=== PATIENT | female | born 1970 | race Caucasian/White ===

== ENCOUNTER 2017-03-17 17:33 | Emergency (ER) | payer OTHER ==
--- NOTE | 2017-03-17 17:45 | UC ---
Throat Pain/Nasal Al HPI - HPI Summary HPI Summary: cough and sorethroat - History of Current Complaint Chief Complaint: UCLowerExtremity Stated Complaint: COUGH,SORE THROAT Time Seen by Provider: 03/17/17 17:45 Hx Obtained From: Patient Hx Last Menstrual Period: hysterectomy ?: No Onset/Duration: Sudden Onset, Lasting Days - 3, Still Present Severity: Moderate Pain Intensity: 5 Pain Scale Used: 0-10 Numeric Cough: Nonproductive Associated Signs & Symptoms: Positive: Wheezing - Allergies/Home Medications Allergies/Adverse Reactions: Allergies Allergy/AdvReac Type Severity Reaction Status Date / Time Levofloxacin [From Levaquin] Allergy Severe Swelling Verified 03/17/17 17:45 Amoxicillin Allergy Difficulty Verified 03/17/17 17:45 Breathing Sulfamethoxazole Allergy Difficulty Verified 03/17/17 17:45 w/Trimethoprim Breathing [From Bactrim] Biju inhibitor Allergy Itching Uncoded 03/17/17 17:45 PMH/Surg Hx/FS Hx/Imm Hx Previously Healthy: No - Surgical History Surgical History: Yes Surgery Procedure, Year, and Place: 1998-tubal ligation. partial hysterectomy. tonsilectomy at 7 years old. appy - Family History Known Family History: Positive: Hypertension - Social History Occupation: Employed Full-time Lives: With Family Alcohol Use: Rare Substance Use Type: None Smoking Status (MU): Heavy Every Day Tobacco Smoker Type: Cigarettes Amount Used/How Often: 1ppd Household Exposure Type: Cigarettes Cessation Counseling: Counseled 3+Min - 10 Min - Immunization History Most Recent Influenza Vaccination: planning to get Most Recent Tetanus Shot: January 2013 Review of Systems Constitutional: Negative Skin: Negative Eyes: Negative ENT: Sore Throat Respiratory: Cough Cardiovascular: Negative Gastrointestinal: Negative Genitourinary: Negative Motor: Negative Neurovascular: Negative Musculoskeletal: Negative Neurological: Negative Psychological: Negative All Other Systems Reviewed And Are Negative: Yes Physical Exam Triage Information Reviewed: Yes Appearance: Well-Nourished, Ill-Appearing, Pain Distress Vital Signs: Initial Vital Signs Temp 98.9 F 03/17/17 17:36 Pulse 89 03/17/17 17:36 Resp 18 03/17/17 17:36 BP 127/73 03/17/17 17:36 Pulse Ox 99 03/17/17 17:36 Vital Signs Reviewed: Yes Eye Exam: Normal Eyes: Positive: Conjunctiva Clear ENT Exam: Normal ENT: Positive: Normal ENT inspection, Hearing grossly normal, Pharynx normal, TMs normal. Negative: Nasal congestion, Nasal drainage, Trismus, Muffled/ hoarse voice Dental Exam: Normal Neck exam: Normal Neck: Positive: Supple, Nontender, No Lymphadenopathy Respiratory Exam: Normal Respiratory: Positive: Chest non-tender, No accessory muscle use, Respiratory distress - mild, Wheezing - L>R Cardiovascular Exam: Normal Cardiovascular: Positive: RRR, No Murmur, Pulses Normal, Brisk Capillary Refill Musculoskeletal Exam: Normal Musculoskeletal: Positive: Strength Intact, ROM Intact, No Edema Neurological Exam: Normal Neurological: Positive: Alert, Muscle Tone Normal Psychological Exam: Normal Skin Exam: Normal Re-Evaluation - Re-Evaluation First Eval Change: Improved - increase aeration and relief of chest tightness and harsh cough after neb Throat Pain/Nasal Course/Dx - Course Assessment/Plan: zithromax, albuterol, prednisone, continue with nicotine cesastion plan and patches follow with pcp - Differential Dx/Diagnosis Differential Diagnosis/HQI/PQRI: Influenza, Otitis Media, Pharyngitis, Sinusitis , URI Provider Diagnoses: Bronchitis with acute bronchospasm, nicotine dependent Discharge - Discharge Plan Condition: Stable Disposition: HOME Prescriptions: Albuterol HFA INHALER* [Ventolin HFA Inhaler*] 2 puff INH Q4H PRN #1 mdi PRN Reason: cough,wheezing Azithromycin TAB* [Zithromax TAB (Z-JIMENEZ) 250 mg #6 tabs] 2 tab PO .TODAY, THEN 1 DAILY #6 tab predniSONE TAB* [Deltasone TAB*] 10 mg PO DAILY #20 tab Patient Education Materials: How to Stop Smoking (ED), How to Use a Metered- Dose Inhaler (ED), Acute Bronchitis (ED), Bronchospasm (ED) Referrals: Minnie Arvizu MD [Primary Care Provider] - If Needed
[2017-03-17 17:47] VITALS: BP 127/73
[2017-03-17] MEDS ORDERED: Albuterol/Ipratropium NEB.SOL* Albuterol 2.5 MG/Ipratropium 0.5 MG 3 ML INH ONE (17:52)
[2017-03-17] MEDS ORDERED: predniSONE TAB* 20 MG PO ONE (17:53)
== END 2017-03-17 18:39 | disposition home or self-care (01) ==
LOC: UCEAST 17:33
DX: J20.9 Acute bronchitis, unspecified (principal); F17.210 Nicotine dependence, cigarettes, uncomplicated
CPT/HCPCS: 99212; A9270-GY; G0463; J7512

== ENCOUNTER 2017-06-19 21:55 | Emergency (ER) | payer OTHER ==
[2017-06-20 01:21] VITALS: BP 132/74
--- NOTE | 2017-06-20 07:34 | RAD ---
INDICATION: Left calf pain. COMPARISON: There are no prior studies available for comparison. TECHNIQUE: Multiple real-time, color flow and Doppler tracings of the left lower extremity were obtained. FINDINGS: The common femoral, femoral, profunda femoral and popliteal veins all demonstrate normal compressibility, augmentation with compression and phasic response with respiration. The posterior tibial and peroneal veins demonstrate normal compressibility and augmentation with compression. IMPRESSION: NO EVIDENCE FOR DEEP VENOUS THROMBOSIS.
--- NOTE | 2017-06-21 01:07 | ED ---
Lower Extremity - HPI Summary HPI Summary: Pt here w/ B/L LE pain/tightness x months. This is not foreign to her as she reports she has a connective tissue d/o (Sjogren's, Lupus, other/combo) and is followed by her PCP. She is here for U/S study to rule out DVT - she's concerned this may be contributing to this issue as she changed jobs - is now standing in one place more than ever and concerned she may have pooling. She has compression stockings but hasn't been wearing them as of late. Denies swelling, redness, streaking, groin pain, ab pain, fever, chills, chest pain, SOB. She has trialed multiple medications w/o success. She is currently taking cymbalta but may transition to gabapentin. She has had benefit in the past from prednisone and admits she has plenty at home - wanted to get checked for DVT before taking this. - History of Current Complaint Chief Complaint: EDExtremityLower Stated Complaint: LEG PAIN/TIGHTENING Time Seen by Provider: 06/20/17 00:22 Hx Obtained From: Patient Hx Last Menstrual Period: hysterectomy Pain Intensity: 6 Pain Scale Used: 0-10 Numeric - Allergies/Home Medications Allergies/Adverse Reactions: Allergies Allergy/AdvReac Type Severity Reaction Status Date / Time Levofloxacin [From Levaquin] Allergy Severe Swelling Verified 06/19/17 22:02 Amoxicillin Allergy Difficulty Verified 06/19/17 22:02 Breathing Sulfamethoxazole Allergy Difficulty Verified 06/19/17 22:02 w/Trimethoprim Breathing [From Bactrim] Biju inhibitor Allergy Itching Uncoded 06/19/17 22:02 PMH/Surg Hx/FS Hx/Imm Hx Previously Healthy: Yes Endocrine/Hematology History: Reports: Hx Systemic Lupus Erythematosus - "3 possitives, one speckled possitive test", no formal diagnosis, refuses, Hx Anemia - "On and off throughout life" Denies: Hx Diabetes, Hx Thyroid Disease Cardiovascular History: Reports: Hx Hypertension, Other Cardiovascular Problems/ Disorders - HEART CATH Denies: Hx Congestive Heart Failure Respiratory History: Reports: Other Respiratory Problems/Disorders - HX PNEUMONIA LAST YEAR Denies: Hx Asthma, Hx Chronic Obstructive Pulmonary Disease (COPD) GI History: Denies: Hx Ulcer, Other GI Disorders History: Denies: Hx Renal Disease, Other Problems/Disorders Musculoskeletal History: Reports: Hx Tendonitis - Surgical History Surgery Procedure, Year, and Place: 1998-tubal ligation. partial hysterectomy. tonsilectomy at 7 years old. appy Hx Anesthesia Reactions: No - Immunization History Date of Tetanus Vaccine: up to date Infectious Disease History: No Infectious Disease History: Reports: Hx of Known/Suspected MRSA - abcess 2009 ? ? questionable Denies: Hx Clostridium Difficile, Hx Hepatitis, Hx Human Immunodeficiency Virus (HIV), Hx Shingles, Hx Tuberculosis, Traveled Outside the [place] in Last 30 Days - Family History Known Family History: Positive: Hypertension - Social History Occupation: Employed Full-time Lives: With Family Alcohol Use: Rare Hx Substance Use: No Substance Use Type: Reports: None Hx Tobacco Use: Yes - not currently Smoking Status (MU): Former Smoker Type: Cigarettes Amount Used/How Often: 1ppd Review of Systems Constitutional: Negative Eyes: Negative ENT: Other - getting over URI Cardiovascular: Negative Respiratory: Negative Gastrointestinal: Negative Positive: no symptoms reported Positive: Myalgia. Negative: Decreased ROM, Edema Skin: Negative Neurological: Negative Psychological: Normal All Other Systems Reviewed And Are Negative: Yes Physical Exam Triage Information Reviewed: Yes Vital Signs On Initial Exam: Initial Vitals Temp Pulse Resp BP Pulse Ox 97.5 F 86 18 147/71 99 06/19/17 21:57 06/19/17 21:57 06/19/17 21:57 06/19/17 21:57 06/19/17 21:57 Vital Signs Reviewed: Yes Appearance: Positive: Well-Appearing, No Pain Distress - lying on stretcher - appears comfortable, Obese Skin: Positive: Warm, Dry - no erythema, no ecchymosis, no lesions Head/Face: Positive: Normal Head/Face Inspection Eyes: Positive: EOMI ENT: Positive: Hearing grossly normal Respiratory/Lung Sounds: Positive: Breath Sounds Present Cardiovascular: Positive: Pulses are Symmetrical in both Upper and Lower Extremities. Negative: Leg Edema Left, Leg Edema Right - B/L LE's are tender throughout (calves and thighs) Musculoskeletal: Positive: Normal, Strength/ROM Intact Neurological: Positive: Normal, Sensory/Motor Intact, Alert, Oriented to Person Place, Time, CN Intact II-III Psychiatric: Positive: Normal - pleasant, calm, cooperative, in good spirits Diagnostics - Vital Signs Vital Signs Temp Pulse Resp BP Pulse Ox 06/20/17 01:17 79 16 132/74 98 06/19/17 21:57 97.5 F 86 18 147/71 99 - Laboratory Diagnostic Studies Comment: U/S report reviewed: no dvt Lab Statement: Any lab studies that have been ordered have been reviewed, and results considered in the medical decision making process. Lower Extremity Course/Dx - Course Course Of Treatment: No DVT's found on U/S. LE's appear to be well perfused and does not appear to be a lumbar pathology. Suspect pt's connective tissue d/o is causing her pain. Encouraged calling PCP to discuss steroid at this time. Also discussed possibility of myofascial d/o and may benefit from medical massage - she jokingly states "I don't have time to pamper myself like that". Agrees to monitor for danger s/sx and will f/u w/ PCP. Will return to ED if necessary. - Diagnoses Provider Diagnoses: Bilateral leg pain Discharge - Discharge Plan Condition: Stable Disposition: HOME Patient Education Materials: Peripheral Neuropathy (ED), Musculoskeletal Pain ( ED), Leg Pain (ED) Forms: *Work Release Referrals: Minnie Arvizu MD [Primary Care Provider] - Additional Instructions: Your ultrasound tonight does not reveal clot(s). You are reporting that your pain is comparable to your typical connective tissue pain which is autoimmune in nature. You have declined blood work tonight. Please stay hydrated with water and gatorade, avoid diuretics/stimulants, rest your legs and follow-up with PCP this week. Call to schedule appointment. *If you develop worsening of pain or chest pain, shortness of breath, fatigue, headache, change in vision, fever, chills, numbness, or weakness, return to ED
== END 2017-06-20 01:17 | disposition home or self-care (01) ==
LOC: ED 21:55
DX: M79.605 Pain in left leg (principal); M79.604 Pain in right leg; Z87.891 Personal history of nicotine dependence
CPT/HCPCS: 99282

== ENCOUNTER 2017-09-30 10:16 | Emergency (ER) | payer OTHER ==
[2017-09-30 10:43] VITALS: BP 126/91
--- NOTE | 2017-09-30 12:39 | UC ---
Martina Cook Emily, scribed for Madan Azul MD on 09/30/17 at 1129 . Respiratory Complaint HPI - HPI Summary HPI Summary: This patient is a 47 year old F presenting to urgent care with a chief complaint of cough with yellow sputum that began 09/27/2017. The patient rates the pain 2/10 in severity. Symptoms aggravated by deep breaths. Symptoms alleviated by Mucinex. Patient reports wheezing, SOB, CP with cough, sneezing, sore throat, and chills. Patient denies myalgia. - History of Current Complaint Chief Complaint: UCRespiratory Stated Complaint: URI Time Seen by Provider: 09/30/17 11:14 Hx Obtained From: Patient Hx Last Menstrual Period: hysterectomy Onset/Duration: Sudden Onset, Lasting Days, Still Present Timing: Constant Severity Initially: Mild Severity Currently: Mild Pain Intensity: 2 Pain Scale Used: 0-10 Numeric Character: Cough: Productive, Sputum Description: - Yellow Aggravating Factors: Deep Breaths Alleviating Factors: OTC Meds Associated Signs And Symptoms: Positive: Chills, Pleuritic Chest Pain - Allergies/Home Medications Allergies/Adverse Reactions: Allergies Allergy/AdvReac Type Severity Reaction Status Date / Time TED Inhibitors Allergy Rash Verified 09/30/17 10:44 amoxicillin Allergy Rash Verified 09/30/17 10:44 levofloxacin [From Levaquin] Allergy Swelling Verified 09/30/17 10:44 Of Face,Lips,& Throat Sulfa (Sulfonamide Allergy Rash Verified 09/30/17 10:44 Antibiotics) Home Medications: Home Medications Guaifenesin/Pseudo 600/60(NF) [Mucinex D 600/60 (NF)] 2 tab PO Q12H 09/30/17 [ History Confirmed 09/30/17] Naproxen [Naproxen 500 mg] 500 mg PO Q8H PRN 09/30/17 [History Confirmed ] PMH/Surg Hx/FS Hx/Imm Hx Previously Healthy: No Cardiovascular History: Hypertension Respiratory History: Pneumonia - Surgical History Surgical History: Yes Surgery Procedure, Year, and Place: 1998-tubal ligation. partial hysterectomy. tonsilectomy at 7 years old. appy - Family History Known Family History: Positive: Cardiac Disease, Hypertension, Diabetes - Social History Occupation: Employed Full-time Lives: With Family Alcohol Use: Rare Substance Use Type: None Smoking Status (MU): Former Smoker Type: Cigarettes Amount Used/How Often: 1ppd Household Exposure Type: Cigarettes - Immunization History Most Recent Influenza Vaccination: planning to get Most Recent Tetanus Shot: January 2013 Review of Systems Constitutional: Chills ENT: Sore Throat Respiratory: Shortness Of Breath, Cough, Other - Positive wheezing and sneezing Cardiovascular: Chest Pain - with cough Musculoskeletal: Other: - Negative myalgia All Other Systems Reviewed And Are Negative: Yes Physical Exam - Summary Physical Exam Summary: General: mildly ill appearing, no pain-distress Skin: warm, color reflects adequate perfusion, dry Head: normal Eyes: EOMI, ADONIS ENT: positive rhinorrhea Neck: supple, nontender Respiratory: breath sounds present, occasional wheeze, positive rhonchi Cardiovascular: RRR Abdomen: soft, nontender Bowel: present Musculoskeletal: normal, strength/ROM intact Neurological: normal, sensory/motor intact, A&O x3 Psychological: affect/mood appropriate Triage Information Reviewed: Yes Vital Signs: Initial Vital Signs Temp 97.8 F 09/30/17 10:37 Pulse 64 09/30/17 10:37 Resp 18 09/30/17 10:37 BP 126/91 09/30/17 10:37 Pulse Ox 95 09/30/17 10:37 Vital Signs Reviewed: Yes UC Diagnostic Evaluation - Laboratory O2 Sat by Pulse Oximetry: 95 Respiratory Course/Dx - Course Course Of Treatment: BP noted and advised to follow up with PCP. DISCUSSED VIRAL VERSES BACTERIAL INFECTION. PATIENT WISHES TO BE ON ABX NOW THE PRESENTATION REMINDS HER OF GETTING PNEUMONIA. F/U PMD; RETURN IF WORSE. - Differential Dx/Diagnosis Provider Diagnoses: BRONCHITIS WITH BRONCHOSPASM. HTN Discharge - Discharge Plan Condition: Stable Disposition: HOME Prescriptions: Albuterol HFA INHALER* [Ventolin HFA Inhaler*] 2 puff INH Q4H PRN #1 mdi PRN Reason: Wheezing Azithromyxin BEREKET (NF) [Z-Bereket (Zithromax) 250 mg tabs #6] 2 tab PO .TODAY, THEN 1 DAILY #6 tab Patient Education Materials: Acute Bronchitis (ED), Bronchospasm (ED) Forms: *Work Release Referrals: Minnie Arvizu MD [Primary Care Provider] - Additional Instructions: FOLLOW UP WITH YOUR DOCTOR. RETURN TO THE EMERGENCY DEPARTMENT FOR ANY WORSENING OF YOUR CONDITION OR QUESTIONS OR CONCERNS. YOUR BLOOD PRESSURE WAS ELEVATED DURING TODAY'S VISIT; FOLLOW UP WITH YOUR PCP WITHIN ONE WEEK FOR FURTHER EVALUATION. The documentation as recorded by the Martina serrano Emily accurately reflects the service I personally performed and the decisions made by me, Madan Azul MD.
== END 2017-09-30 11:30 | disposition home or self-care (01) ==
LOC: UCEAST 10:16
DX: J20.9 Acute bronchitis, unspecified (principal); I10 Essential (primary) hypertension; Z87.891 Personal history of nicotine dependence; Z88.0 Allergy status to penicillin; Z88.2 Allergy status to sulfonamides
CPT/HCPCS: 99212; G0463

== ENCOUNTER 2018-01-09 09:04 | Emergency (ER) | payer OTHER ==
--- NOTE | 2018-01-09 10:35 | UC ---
Abdominal Pain Female HPI - HPI Summary HPI Summary: Patient has right upper quadrant pain and tenderness. No injuries no nausea no vomiting no fevers - History of Current Complaint Chief Complaint: UCAbdominalPain Stated Complaint: RIGHT RIB PAIN Time Seen by Provider: 01/09/18 10:24 Hx Obtained From: Patient Hx Last Menstrual Period: hyster ?: No Onset/Duration: Sudden Onset, Lasting Days - 1 Timing: Constant Pain Intensity: 7 Pain Scale Used: 0-10 Numeric Location: Discrete At: RUQ Radiates: No Character: Colicy Aggravating Factor(s): Nothing Alleviating Factor(s): Nothing Allergies/Adverse Reactions: Allergies Allergy/AdvReac Type Severity Reaction Status Date / Time TED Inhibitors Allergy Rash Verified 09/30/17 10:44 amoxicillin Allergy Rash Verified 09/30/17 10:44 levofloxacin [From Levaquin] Allergy Swelling Verified 09/30/17 10:44 Of Face,Lips,& Throat Sulfa (Sulfonamide Allergy Rash Verified 09/30/17 10:44 Antibiotics) Home Medications: Home Medications Hydroxychloroquine TAB* [Plaquenil TAB*] 200 mg PO DAILY 01/09/18 [History Confirmed 01/09/18] Irbesartan 75 mg PO DAILY 01/09/18 [History Confirmed 01/09/18] PMH/Surg Hx/FS Hx/Imm Hx Previously Healthy: 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 partial hysterectomy. tonsilectomy at 7 years old. appy - Family History Known Family History: Positive: Cardiac Disease, Hypertension, Diabetes - Social History Occupation: Employed Full-time Lives: With Family Alcohol Use: None Substance Use Type: None Smoking Status (MU): Light Every Day Tobacco Smoker Type: Cigarettes Amount Used/How Often: 1ppd Household Exposure Type: Cigarettes Cessation Counseling: Counseled 3+Min - 10 Min - Immunization History Most Recent Influenza Vaccination: planning to get Most Recent Tetanus Shot: January 2013 Review of Systems Constitutional: Negative Skin: Negative Eyes: Negative ENT: Negative Respiratory: Negative Cardiovascular: Negative Gastrointestinal: Abdominal Pain Genitourinary: Negative Motor: Negative Neurovascular: Negative Musculoskeletal: Negative Neurological: Negative Psychological: Negative Is Patient Immunocompromised?: No All Other Systems Reviewed And Are Negative: Yes Physical Exam Triage Information Reviewed: Yes Appearance: Well-Appearing, No Pain Distress, Well-Nourished Vital Signs: Initial Vital Signs Temp 97.7 F 01/09/18 09:20 Pulse 90 01/09/18 09:20 Resp 18 01/09/18 09:20 BP 125/87 01/09/18 09:20 Pulse Ox 99 01/09/18 09:20 Vital Signs Reviewed: Yes Eye Exam: Normal Eyes: Positive: Conjunctiva Clear ENT Exam: Normal ENT: Positive: Normal ENT inspection, Hearing grossly normal. Negative: Trismus , Muffled voice, Hoarse voice Neck exam: Normal Neck: Positive: Supple, Nontender Respiratory Exam: Normal Respiratory: Positive: Chest non-tender, Lungs clear, Normal breath sounds, No respiratory distress, No accessory muscle use Cardiovascular Exam: Normal Cardiovascular: Positive: RRR, No Murmur, Pulses Normal, Brisk Capillary Refill Abdominal Exam: Other Abdomen Description: Positive: No Organomegaly, Soft, Other: - RUQ pain. Negative: CVA Tenderness (R), CVA Tenderness (L), Distended, Hepatomegaly, McBurney's Point Tenderness Bowel Sounds: Positive: Present Musculoskeletal Exam: Normal Musculoskeletal: Positive: Strength Intact, ROM Intact, No Edema Neurological Exam: Normal Neurological: Positive: Alert, Muscle Tone Normal Psychological Exam: Normal Skin Exam: Normal Diagnostics - Laboratory Diagnostic Studies Completed/Ordered: [id number] - Radiology No standard instances Xray Interpretation: No Acute Changes Radiology Interpretation Completed By: ED Physician, Radiologist - Patient Name : GISELA DIMAS Medical Record#: [id number] Ordering Physician: Marlin Garner MANUFACTURING ENGINEERING TECHNOLOGIST Acct.#: [id number] : 1970 Age: 47 Sex: F Location: [facility] Exam Date: 01/09/18 1031 ADM Status: REG ER Order Information: US ABDOMEN LIMITED Accession Number: [id number] CPT : 87413 Indication: 1 day RIGHT upper quadrant pain. Comparison: April 08, 2013 CT Technique: RIGHT upper quadrant ultrasound. Report: Appropriate direction flow documented in the portal and hepatic veins. 19.3 cm liver is increased in echogenicity consistent with fatty infiltration with focal sparing at the gallbladder fossa. Negative for focal hepatic lesions. Negative for intrahepatic biliary dilatation. 2.8 mm common bile duct. Adequately distended gallbladder with normal 1.7 mm wall is without pathologic finding. Negative for sonographic Brown's sign. The pancreatic tail is partially obscured due to bowel gas with the visualized pancreas unremarkable. Negative for ascites. 11.5 x 4.7 x 4.7 cm RIGHT kidney is unremarkable. IMPRESSION: 1. Borderline enlarged liver with fatty infiltration. 2. Negative for gallbladder pathology. <Electronically signed by Joe Nelson MD in OV> 01/09/18 1117 Dictated By: Joe Nelson MD Dictated Date/ Time: 01/09/18 111 Transcribed Date/Time: 01/09/18 1113 Copy to: CC:Minnie Arvizu MD; Marlin Garner MANUFACTURING ENGINEERING TECHNOLOGIST; Lulú Forte MD Imaging - [facility] Imaging - [facility] [address] [place] [address] ph ([phone]) ph ([phone]) ph ([phone]) 1 of 1 Abd Pain Female Course/Dx - Course Course Of Treatment: heat, flexeril, ultram rest follow with pcp - Differential Dx/Diagnosis Provider Diagnoses: MUscular skelatal pain Discharge - Sign-Out/Discharge Documenting (check all that apply): Discharge/Admit/Transfer - Discharge Plan Condition: Stable Disposition: HOME Prescriptions: Tramadol HCl [Ultram] 50 mg PO Q8HR PRN #15 tablet MDD 3 PRN Reason: pain Patient Education Materials: Musculoskeletal Pain (ED), Hypertension (ED) Forms: *Work Release Referrals: Minnie Arvizu MD [Primary Care Provider] - 2 Days - Billing Disposition and Condition Condition: STABLE Disposition: Home
--- NOTE | 2018-01-09 11:20 | RAD ---
Indication: 1 day RIGHT upper quadrant pain. Comparison: April 08, 2013 CT Technique: RIGHT upper quadrant ultrasound. Report: Appropriate direction flow documented in the portal and hepatic veins. 19.3 cm liver is increased in echogenicity consistent with fatty infiltration with focal sparing at the gallbladder fossa. Negative for focal hepatic lesions. Negative for intrahepatic biliary dilatation. 2.8 mm common bile duct. Adequately distended gallbladder with normal 1.7 mm wall is without pathologic finding. Negative for sonographic Brown's sign. The pancreatic tail is partially obscured due to bowel gas with the visualized pancreas unremarkable. Negative for ascites. 11.5 x 4.7 x 4.7 cm RIGHT kidney is unremarkable. IMPRESSION: 1. Borderline enlarged liver with fatty infiltration. 2. Negative for gallbladder pathology.
[2018-01-09 12:26] VITALS: BP 136/84
== END 2018-01-09 12:21 | disposition home or self-care (01) ==
LOC: UCEAST 09:04
DX: R10.11 Right upper quadrant pain (principal); Z88.1 Allergy status to other antibiotic agents; Z88.0 Allergy status to penicillin; Z88.2 Allergy status to sulfonamides; D89.89 Other specified disorders involving the immune mechanism, not elsewhere classified; I10 Essential (primary) hypertension; J45.20 Mild intermittent asthma, uncomplicated; Z82.49 Family history of ischemic heart disease and other diseases of the circulatory system; Z83.3 Family history of diabetes mellitus; Z71.6 Tobacco abuse counseling; F17.210 Nicotine dependence, cigarettes, uncomplicated
CPT/HCPCS: 76705; 81003; 99212; G0463

== ENCOUNTER 2018-04-04 09:08 | Emergency (ER) | payer OTHER ==
[2018-04-04 09:25] VITALS: BP 144/86
--- NOTE | 2018-04-04 09:31 | UC ---
Head Injury HPI - HPI Summary HPI Summary: A 47 y/o F presents to E s/p hitting her head on a metal cooler door onset approx 0800. Onset of pain was immediate and described as burning. Associated sx : dizziness, L eye feels "tight," photophobia. Denies LOC, neck pain, dental trauma (wears dentures), changes in ambulation. She states she had bent down but left the door open, so when she stood up, she hit her forehead against the door. Medications reviewed, pt is not on a blood thinner. 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 - History Of Current Complaint Chief Complaint: UCHeadInjury Stated Complaint: HEAD INJURY Hx Obtained From: Patient Hx Last Menstrual Period: hyster Onset/Duration: Sudden Onset, Lasting Hours, Still Present Severity Currently: Moderate Severity Initially: Moderate Pain Intensity: 6 Pain Scale Used: 0-10 Numeric Associated Signs And Symptoms: Positive: Other - pos: dizziness, L eye feels "tight," photophobia. neg: changes in ambulation. Negative: LOC (Time In Secs./ Mins/Hrs), LOC Duration Unknown, Dental Malocclusion, Neck Pain - Allergies/Home Medications Allergies/Adverse Reactions: Allergies Allergy/AdvReac Type Severity Reaction Status Date / Time TED Inhibitors Allergy Rash Verified 04/04/18 09:25 amoxicillin Allergy Rash Verified 04/04/18 09:25 celecoxib [From Celebrex] Allergy Nausea Verified 04/04/18 09:26 levofloxacin [From Levaquin] Allergy Swelling Verified 04/04/18 09:25 Of Face,Lips,& Throat Sulfa (Sulfonamide Allergy Rash Verified 04/04/18 09:25 Antibiotics) Home Medications: Home Medications Cyclobenzaprine TAB* [Flexeril 10 MG TAB*] 10 mg PO 04/04/18 [History] PMH/Surg Hx/FS Hx/Imm Hx Previously Healthy: No Cardiovascular History: Cardiac Disease, Hypertension Respiratory History: Bronchitis Other GI/ History: denies GI hx - Surgical History Surgical History: Yes Surgery Procedure, Year, and Place: 1998-tubal ligation. partial hysterectomy. tonsilectomy at 7 years old. appy - Family History Known Family History: Positive: Cardiac Disease, Hypertension, Diabetes, Other - neg: Breast CA - Social History Occupation: Employed Full-time Lives: With Family Alcohol Use: None Substance Use Type: None Smoking Status (MU): Heavy Every Day Tobacco Smoker Type: Cigarettes Amount Used/How Often: 1ppd Household Exposure Type: Cigarettes - Immunization History Most Recent Influenza Vaccination: planning to get Most Recent Tetanus Shot: January 2013 Review of Systems Constitutional: Other - neg: changes in ambulation Eyes: Photophobia, Other - pos: L eye feels "tight" ENT: Other - neg: dental trauma Musculoskeletal: Other: - neg: neck pain Neurological: Headache, Other - pos: dizziness; neg: LOC All Other Systems Reviewed And Are Negative: Yes Physical Exam - Summary Physical Exam Summary: General: well-appearing, no pain distress Skin: warm, color reflects adequate perfusion, dry Head: Swelling to L temporal-parietal scalp, no skin break, tender to palpation. Eyes: EOMI, ADONIS ENT: normal Neck: supple, nontender Respiratory: CTA, breath sounds present Cardiovascular: RRR Abdomen: soft, nontender Bowel: present Musculoskeletal: normal, strength/ROM intact Neurological: sensory/motor intact, A&O x3 Psychological: affect/mood appropriate Triage Information Reviewed: Yes Vital Signs: Initial Vital Signs Temp 96.8 F 04/04/18 09:21 Pulse 80 04/04/18 09:21 Resp 18 04/04/18 09:21 BP 144/86 04/04/18 09:21 Pulse Ox 99 04/04/18 09:21 Vital Signs Reviewed: Yes - Additional Comments GCS: 15 Diagnostics - Laboratory Diagnostic Studies Completed/Ordered: BRAIN CT as read by radiologist: IMPRESSION: No evidence for acute intracranial abnormality. [facility] provider has reviewed this report. Re-Evaluation - Re-Evaluation 1 Re-Evaluation Time: 10:40 Change: Unchanged Comment: Discussing CT results with pt and plan for dispo. Pt voiced understanding. Head Injury Course/Dx - Course Course Of Treatment: BP noted and advised to follow up with PCP. Medications reviewed. Allergies noted. DISCUSSED CT RESULTS WITH THE PATIENT. F/U PMD; RECHECK SOONER IF WORSE. - Differential Dx/Diagnosis Provider Diagnoses: HEAD INJURY Discharge - Sign-Out/Discharge Documenting (check all that apply): Patient Departure - DC All imaging exams completed and their final reports reviewed: Yes - Discharge Plan Condition: Stable Disposition: HOME Patient Education Materials: Head Injury (ED) Forms: *Work Release Referrals: Minnie Arvizu MD [Primary Care Provider] - Additional Instructions: FOLLOW UP WITH YOUR DOCTOR IF NOT COMPLETELY IMPROVED. GET RECHECKED FOR ANY WORSENING OF YOUR CONDITION; PAIN, WEAKNESS, NUMBNESS, CHANGE IN VISION OR SPEECH OR QUESTIONS OR CONCERNS. Your blood pressure was elevated during todays visit; please follow up with your primary care provider within a week for further evaluation. - Billing Disposition and Condition Condition: STABLE Disposition: Home - Attestation Statements Document Initiated by Scribe: Yes Documenting Scribe: Raoul Florence Provider For Whom Narciso is Documenting (Include Credential): Madan Azul MD Scribe Attestation: I, Raoul Florence, scribed for Madan Azul MD on 04/04/18 at 1154. Scribe Documentation Reviewed: Yes Provider Attestation: The documentation as recorded by the Raoul serrano accurately reflects the service I personally performed and the decisions made by me, Madan Azul MD
[2018-04-04] MEDS ORDERED: Acetaminophen TAB* 325 MG PO ONE (09:41)
--- NOTE | 2018-04-04 10:30 | RAD ---
INDICATION: Headache status post trauma. COMPARISON: Comparison is made with a prior study from January 21, 2014. TECHNIQUE: Contiguous axial sections of the brain were obtained from the skull base to the vertex without contrast. FINDINGS: The ventricles, cisterns and sulci are within normal limits. No significant focal abnormality or mass effect is seen. There is no evidence for hemorrhage. The visualized portion of the paranasal sinuses appear clear. No fracture is seen. IMPRESSION: NO EVIDENCE FOR ACUTE INTRACRANIAL ABNORMALITY.
== END 2018-04-04 10:54 | disposition home or self-care (01) ==
LOC: UCEAST 09:08
DX: S09.90XA Unspecified injury of head, initial encounter (principal); R42 Dizziness and giddiness; H53.142 Visual discomfort, left eye; F17.210 Nicotine dependence, cigarettes, uncomplicated; I10 Essential (primary) hypertension; Z88.8 Allergy status to other drugs, medicaments and biological substances; Z88.0 Allergy status to penicillin; Z88.1 Allergy status to other antibiotic agents; Z88.2 Allergy status to sulfonamides; W22.8XXA Striking against or struck by other objects, initial encounter; Y92.9 Unspecified place or not applicable
CPT/HCPCS: 70450; 99211; A9270-GY; G0463

== ENCOUNTER 2018-05-07 09:55 | Emergency (ER) | payer OTHER ==
[2018-05-07 10:33] LABS: ABS Basophils 0.1 10^3/ul (0-0.2); ABS Eosinophils 0.1 10^3/ul (0-0.6); ABS Monocytes 0.6 10^3/ul (0-0.8); ABS Neutrophils 5.7 10^3/ul (1.5-7.7); ABS Nucleated RBC 0 10^3/ul; Eosinophil % 1.3 % (0-6); Hematocrit 42 % (35-47); Hemoglobin 14.6 g/dl (12.0-16.0); Lymphocyte % 23.9 % (25-47); Mean Corpuscular HGB Conc 35 g/dl (31-36); Mean Corpuscular Hemoglobin 33 pg (27-31); Mean Corpuscular Volume 95 fL (80-97); Mean Platelet Volume 7.5 um3 (7.4-10.4); Nucleated Red Blood Cells % 0.1; Platelet Count 341 10^3/ul (150-450); Red Blood Count 4.46 10^6/ul (4.00-5.40); Red Cell Distribution Width 12 % (10.5-15); White Blood Count 8.5 10^3/ul (3.5-10.8)
[2018-05-07 10:56] LABS: EGFR Non-African American 75.2 (>60)
--- NOTE | 2018-05-07 12:07 | ED ---
HPI Chest Pain - HPI Summary HPI Summary: A 47 y/o F presents to ED with c/o intermittent, discrete L-sided chest pain and LUE pain onset last night which lasted approx 3 hours. Patient contacted her PCP this morning who referred her to ED. She describes the pain as a "twitch." Denies SOB, n/v, dizziness. Alleviating factors: sleeping in a chair. Patient is in the car every other weekend for 4 hours at a time, including this past weekend. She was extremely stressed last night due to her son. PMHx: HTN. - History of Current Complaint Chief Complaint: EDChestPainROMI Time Seen by Provider: 05/07/18 11:18 Hx Obtained From: Patient Hx Last Menstrual Period: hyster Onset/Duration: Started Hours Ago, Still Present Timing: Intermittent, Lasting Hours Initial Severity: Moderate Current Severity: Mild Pain Intensity: 2 Pain Scale Used: 0-10 Numeric Chest Pain Location: Left Anterior Chest Pain Radiates: Yes Chest Pain Radiates To:: Arm - LUE Character: Other: - "twitch" Alleviating Factor(s): Upright Position Associated Signs and Symptoms: Negative: Dizziness, Shortness of Breath, Nausea , Vomiting - Allergy/Home Medications Allergies/Adverse Reactions: Allergies Allergy/AdvReac Type Severity Reaction Status Date / Time TED Inhibitors Allergy Rash Verified 05/07/18 10:02 amoxicillin Allergy Rash Verified 05/07/18 10:02 celecoxib [From Celebrex] Allergy Nausea Verified 05/07/18 10:02 levofloxacin [From Levaquin] Allergy Swelling Verified 05/07/18 10:02 Of Face,Lips,& Throat Sulfa (Sulfonamide Allergy Rash Verified 05/07/18 10:02 Antibiotics) PMH/Surg Hx/FS Hx/Imm Hx Previously Healthy: No Endocrine/Hematology History: Reports: Hx Systemic Lupus Erythematosus - "3 possitives, one speckled possitive test", no formal diagnosis, refuses, Hx Anemia - "On and off throughout life" Denies: Hx Diabetes, Hx Thyroid Disease Cardiovascular History: Reports: Hx Hypertension, Other Cardiovascular Problems/ Disorders - HEART CATH Denies: Hx Congestive Heart Failure Respiratory History: Reports: Other Respiratory Problems/Disorders - HX PNEUMONIA LAST YEAR Denies: Hx Asthma, Hx Chronic Obstructive Pulmonary Disease (COPD) GI History: Denies: Hx Ulcer, Other GI Disorders History: Denies: Hx Renal Disease, Other Problems/Disorders Musculoskeletal History: Reports: Hx Tendonitis - Surgical History Surgery Procedure, Year, and Place: 1998-tubal ligation. partial hysterectomy. tonsilectomy at 7 years old. appy Hx Anesthesia Reactions: No - Immunization History Date of Tetanus Vaccine: up to date Immunizations Up to Date: Yes Infectious Disease History: No Infectious Disease History: Reports: Hx of Known/Suspected MRSA - abcess 2009 ? ? questionable Denies: Hx Clostridium Difficile, Hx Hepatitis, Hx Human Immunodeficiency Virus (HIV), Hx Shingles, Hx Tuberculosis, Traveled Outside the [place] in Last 30 Days - Family History Known Family History: Positive: Cardiac Disease, Hypertension, Diabetes, Other - neg: Breast CA - Social History Occupation: Employed Full-time Lives: With Family Alcohol Use: None Hx Substance Use: No Substance Use Type: Reports: None Hx Tobacco Use: Yes - not currently Smoking Status (MU): Heavy Every Day Tobacco Smoker Type: Cigarettes Amount Used/How Often: 1ppd Review of Systems Positive: Chest Pain Negative: Shortness Of Breath Negative: Vomiting, Nausea Musculoskeletal: Other - LUE pain radiating from chest Neurological: Other - neg: dizziness All Other Systems Reviewed And Are Negative: Yes Physical Exam - Summary Physical Exam Summary: VITAL SIGNS: Reviewed. GENERAL: Patient is a well-developed and nourished FEMALE who is lying comfortable in the stretcher. Patient is not in any acute respiratory distress. HEAD AND FACE: No signs of trauma. No ecchymosis, hematomas or skull depressions. No sinus tenderness. EYES: PERRLA, EOMI x 2, No injected conjunctiva, no nystagmus. EARS: Hearing grossly intact. Ear canals and tympanic membranes are within normal limits. MOUTH: Oropharynx within normal limits. NECK: Supple, trachea is midline, no adenopathy, no JVD, no carotid bruit, no c- spine tenderness, neck with full ROM. CHEST: Symmetric, slight reproducible pain with palpation of anterior aspect of L side. LUNGS: Clear to auscultation bilaterally. No wheezing or crackles. CVS: Regular rate and rhythm, S1 and S2 present, no murmurs or gallops appreciated. ABDOMEN: Soft, non-tender. No signs of distention. No rebound, no guarding, and no masses palpated. Bowel sounds are normal. EXTREMITIES: FROM in all major joints, no edema, no cyanosis or clubbing. NEURO: Alert and oriented x 3. No acute neurological deficits. Speech is normal and follows commands. SKIN: Dry and warm Triage Information Reviewed: Yes Vital Signs On Initial Exam: Initial Vitals Temp Pulse Resp BP Pulse Ox 96.5 F 95 18 140/88 100 05/07/18 09:59 05/07/18 09:59 05/07/18 09:59 05/07/18 09:59 05/07/18 09:59 Vital Signs Reviewed: Yes Diagnostics - Vital Signs Vital Signs Temp Pulse Resp BP Pulse Ox 05/07/18 09:59 96.5 F 95 18 140/88 100 - Laboratory Lab Results: Lab Results 05/07/18 05/07/18 05/07/18 Range/Units 10:21 10:21 10:21 WBC 8.5 (3.5-10.8) 10^3/ul RBC 4.46 (4.00-5.40) 10^6/ul Hgb 14.6 (12.0-16.0) g/dl Hct 42 (35-47) % MCV 95 (80-97) fL MCH 33 H (27-31) pg MCHC 35 (31-36) g/dl RDW 12 (10.5-15) % Plt Count 341 (150-450) 10^3/ul MPV 7.5 (7.4-10.4) um3 Neut % (Auto) 67.0 (38-83) % Lymph % (Auto) 23.9 L (25-47) % [place] % (Auto) 7.0 (0-7) % Eos % (Auto) 1.3 (0-6) % Baso % (Auto) 0.8 (0-2) % Absolute Neuts (auto) 5.7 (1.5-7.7) 10^3/ul Absolute Lymphs (auto) 2.0 (1.0-4.8) 10^3/ul Absolute Monos (auto) 0.6 (0-0.8) 10^3/ul Absolute Eos (auto) 0.1 (0-0.6) 10^3/ul Absolute Basos (auto) 0.1 (0-0.2) 10^3/ul Absolute Nucleated RBC 0 10^3/ul Nucleated RBC % 0.1 Sodium 138 (135-145) mmol/L Potassium 3.5 (3.5-5.0) mmol/L Chloride 101 (101-111) mmol/L Carbon Dioxide 31 (22-32) mmol/L Anion Gap 6 (2-11) mmol/L BUN 17 (6-24) mg/dL Creatinine 0.81 (0.51-0.95) mg/dL Est GFR ( Amer) 90.9 (>60) Est GFR (Non-Af Amer) 75.2 (>60) BUN/Creatinine Ratio 21.0 H (8-20) Glucose 116 H (70-100) mg/dL Lactic Acid 0.9 (0.5-2.0) mmol/L Calcium 9.6 (8.6-10.3) mg/dL Total Bilirubin 0.50 (0.2-1.0) mg/dL AST 14 (13-39) U/L ALT 13 (7-52) U/L Alkaline Phosphatase 86 (34-104) U/L Troponin I 0.01 (<0.04) ng/mL Total Protein 7.2 (6.4-8.9) g/dL Albumin 4.6 (3.2-5.2) g/dL Globulin 2.6 (2-4) g/dL Albumin/Globulin Ratio 1.8 (1-3) Result Diagrams: 05/07/18 10:21 05/07/18 10:21 Lab Statement: Any lab studies that have been ordered have been reviewed, and results considered in the medical decision making process. - Radiology CXR Xray Interpretation: No Acute Changes - IMPRESSION: No evidence for active cardiopulmonary dz. ED provider has reviewed this report. Radiology Interpretation Completed By: Radiologist - EKG 1012 Cardiac Rate: NL - 75bpm EKG Rhythm: Sinus Rhythm EKG Interpretation: no ST elevation Chest Pain Course/Dx - Course Assessment/Plan: A 47 y/o F presents to ED with c/o intermittent, discrete L- sided chest pain and LUE pain onset last night which lasted approx 3 hours. Patient contacted her PCP this morning who referred her to ED. She describes the pain as a "twitch." Denies SOB, n/v, dizziness. Alleviating factors: sleeping in a chair. Patient is in the car every other weekend for 4 hours at a time, including this past weekend. She was extremely stressed last night due to her son. PMHx: HTN. Blood test results without any significant abnormality except for glucose of 116. 2 troponins 4 hours apart 0.01. The patient is not tachycardic or hypoxic therefore I have low suspicion for PE. The patient has remained asymptomatic. The patient denies any chest pain. EKG shows a normal sinus rhythm without any ST elevation. Chest x-ray shows no acute pathology. In the ED course the patient has remained asymptomatic therefore I would discharge the patient home with follow-up with primary care physician. The heart score is equal to 1. - Chest Pain Differential Diagnosis/HQI/PQRI: Acute PR, ACS, Angina, CHF, Chest Wall, GI Disease, Lower Respiratory Infection, Pulmonary Edema - Diagnoses Provider Diagnoses: Atypical chest pain Discharge - Sign-Out/Discharge Documenting (check all that apply): Patient Departure - DC - Discharge Plan Condition: Stable Disposition: HOME Patient Education Materials: Chest Pain (ED) Referrals: Minnie Arvizu MD [Primary Care Provider] - 3 Days Additional Instructions: Follow up with your primary care provider in 2-3 days. Please return to the ED if you experience new or worsening symptoms. - Billing Disposition and Condition Condition: STABLE Disposition: Home - Attestation Statements Document Initiated by Luis Fernandoibfarshad: Yes Documenting Scribe: Raoul Florence Provider For Whom Narciso is Documenting (Include Credential): Dr. Joe Rowland MD Scribe Attestation: IRaoul, scribed for Dr. Joe Rowland MD on 05/08/18 at 1817. Scribe Documentation Reviewed: Yes Provider Attestation: The documentation as recorded by the Raoul serrano accurately reflects the service I personally performed and the decisions made by me, Dr. Joe Rowland MD
--- NOTE | 2018-05-07 13:43 | RAD ---
INDICATION: Chest pain. COMPARISON: Comparison is made with a prior study from May 14, 2016. TECHNIQUE: Dual-energy PA and lateral views of the chest were obtained. FINDINGS: The heart is within normal limits in size. Mediastinal and hilar contours appear within normal limits. The lungs are clear. No pleural effusion or pneumothorax is seen. IMPRESSION: NO EVIDENCE FOR ACTIVE CARDIOPULMONARY DISEASE.
[2018-05-07 14:21] VITALS: BP 152/96
== END 2018-05-07 14:19 | disposition home or self-care (01) ==
LOC: ED 09:55
DX: R07.89 Other chest pain (principal); I10 Essential (primary) hypertension; F17.210 Nicotine dependence, cigarettes, uncomplicated; Z88.8 Allergy status to other drugs, medicaments and biological substances; Z88.3 Allergy status to other anti-infective agents; Z88.2 Allergy status to sulfonamides
CPT/HCPCS: 36415; 71046; 80053; 83605; 84484; 85025; 93005; 99283

== ENCOUNTER 2018-10-13 09:38 | Emergency (ER) | payer OTHER ==
--- OUTSIDE RECORDS SUMMARY | 2018-10-13 09:43 | XMS REPORT | Continuity of Care Document ---
:1970 External Reference #:[id number] Author Name Brad Izaguirre MD Address [address] [facility] [place] [address] Care Team Providers Name Role Phone Minnie Arvizu M.D. Care Team Information Lawn Mower Repairer Unavailable Minnie Arvizu M.D. Primary Care Physician Unavailable Payers Date Identification Numbers Payment Provider Subscriber Effective: 2016 Policy Number: [id number] Garth [employer] Jackson Dimas PayID: [id number] [address] [place] [address] Advance Directives Description No Information Available Problems Date Description Provider Status Onset: 08/23/2016 Hyperlipidemia Minnie Arvizu M.D. Active Onset: 02/23/2017 Essential hypertension Minnie Arvizu M.D. Active Onset: 08/28/2017 Disorder of connective tissue Minnie Arvizu M.D. Active Onset: 10/24/2017 Osteoarthritis Minnie Arvizu M.D. Active Onset: 01/09/2018 Steatosis of liver Minnie Arvizu M.D. Active Onset: 05/16/2018 Obesity Minnie Arvizu M.D. Active Family History Date Family Member(s) Observation Comments General Diabetes Mellitus, II Father due to Lung Cancer () Mother Hypertension Mother Rheumatoid Arthritis Social History Type Date Description Comments Sex Unknown Marital Status Legal Status: Diet Healthy, Well Balanced Diet Patient is a vegetarian Occupation Sheetmetal Trades Worker Occupation [employer] Tobacco Use Start: Unknown Current Cigarette Smoker 1 Pack Daily Smoking Status Reviewed: 03/04/18 Current Cigarette Smoker 1 Pack Daily ETOH Use Social Alcohol Tobacco Use Start: Unknown Heavy tobacco smoker (more than 10 cigarettes/day) Allergies, Adverse Reactions, Alerts Date Description Reaction Status Severity Comments 08/23/2016 Levaquin Active Severe tongue swelling 08/23/2016 Amoxicillin Active Mild 08/23/2016 Bactrim Active Mild rash 06/07/2017 Duloxetine Active fever Medications Medication Date Status Form Strength Qnty SIG Indications Ordering Provider Lorazepam 09/20 Active Tablets 1mg 12tab one by F43.Darin s mouth Inna petty MD times a day as needed severe anxiety Work Note 09/20 Active was seen F4.Darin in office Inna petty MD Recommend remain out of work. Return date: 10/01/18 Ondansetron 06/21 Active Tablets 4mg 30tab 1 tab by Dispers s mouth Nolberto, every 6 M.D. hours as needed Naproxen 06/07 Active Tablets 500mg 60tab Take One Yasmeen s Tablet By Jaylin Mouth Dajuan, Every 12 LOGGING SHOVEL OPERATOR Hours as Needed With Food Cyclobenzaprine HCL 05/30 Active Tablets 5mg 30tab Take 08/08 - L94.9 Yasmeen s 1 Tablet Jaylin By Mouth Dajuan, AT Bedtime LOGGING SHOVEL OPERATOR as Needed Melatonin 02/23 Active Capsules 10mg Grupo Arvizu Irbesartan 01/26 Active Tablets 75mg 30tab Take One s Tablet By Jodi Arvizu.Antonieta Every Day Hydrochlorothiazide 11/17 Active Tablets 25mg 90tab 1 by mouth Rigoberto s every day Grupo Chaney Plaquenil Active Tablets 200mg bid Unknown /0000 Azithromycin 06/26 Hx Tablets 250mg 6tabs 2 tabs R06.2 todayNolberto, - then 1 tab M.D. 07/06 daily for next 4 days Duloxetine HCL 05/[address] 60mg 30cap 1 by mouth L94.9 Part s every day Chinedu Arvizu.DDarin 06/07 Lisinopril 01/21 Hx Tablets 10mg 30tab 1 by mouth I10 Carol Marshall s every day Chinedu Tapia M.DDarin 02/23 Chantix Continuing 09/21 Hx Tablets 1mg 60tab 1 tab by F17.210 Minnie s mouth Nolberto, - twice a M.D. No Active 08/23 Hx Minnie Grandin, - M.D. 08/23 Chantix Starting 08/23 Hx Tablets 0.5mg X 1tabs 1 starter F17.210 Minnie Month 11 & 1 mg pack for a Grandin, - X 42 month M.D. 09/21 Immunizations CPT Code Status Date Vaccine Lot # [id number] Given 05/16/2018 Influenza Vac, Quadrivalent, Slit Virus, Im [id number] Vital Signs Date Vital Result Comment 09/20/2018 11:24am BP Systolic 118 mmHg BP Diastolic 76 mmHg Heart Rate 80 /min Body Temperature 98.0 F Respiratory Rate 18 /min Weight 210.00 lb 05/16/2018 3:18pm BP Systolic 148 mmHg BP Diastolic 72 mmHg Heart Rate 88 /min Body Temperature 97.5 F Respiratory Rate 20 /min Weight 214.00 lb 03/02/2018 8:30am BP Systolic 120 mmHg BP Diastolic 64 mmHg Heart Rate 80 /min Body Temperature 97.9 F Respiratory Rate 16 /min Height 64 inches 5'4" Weight 217.12 lb BMI (Body Mass Index) 37.3 kg/m2 08/28/2017 5:20pm BP Systolic 128 mmHg BP Diastolic 60 mmHg Heart Rate 60 /min Body Temperature 97.5 F Respiratory Rate 16 /min Height 64 inches 5'4" Weight 225.50 lb BMI (Body Mass Index) 38.7 kg/m2 06/26/2017 3:40pm BP Systolic 124 mmHg BP Diastolic 80 mmHg Heart Rate 84 /min Body Temperature 98.8 F Respiratory Rate 16 /min Height 64 inches 5'4" Weight 218.25 lb BMI (Body Mass Index) 37.5 kg/m2 05/30/2017 11:31am BP Systolic 138 mmHg BP Diastolic 90 mmHg Heart Rate 72 /min Body Temperature 97.5 F Height 64 inches 5'4" Weight 216.00 lb BMI (Body Mass Index) 37.1 kg/m2 02/23/2017 6:13pm BP Systolic 128 mmHg BP Diastolic 72 mmHg Heart Rate 80 /min Body Temperature 98.3 F Respiratory Rate 16 /min Height 64 inches 5'4" Weight 209.00 lb BMI (Body Mass Index) 35.9 kg/m2 01/21/2017 11:58am BP Systolic 142 mmHg BP Diastolic 88 mmHg Heart Rate 78 /min Body Temperature 98.4 F Respiratory Rate 16 /min Height 64 inches 5'4" Weight 211.12 lb BMI (Body Mass Index) 36.2 kg/m2 08/23/2016 4:05pm BP Systolic 124 mmHg BP Diastolic 80 mmHg Heart Rate 74 /min Body Temperature 98.1 F Respiratory Rate 16 /min Height 64 inches 5'4" Weight 213.00 lb BMI (Body Mass Index) 36.6 kg/m2 Results Test Date Facility Test Result H/L Range Note Laboratory test 05/16/2018 [facility] ([facility]) Serum Iron 40 g/dL Low 60-150 finding Vitamin B-12 344 pg/mL 230-1050 Ferritin 62 ng/mL 15-200 CBC Electronic [facility] 05/16/2018 [facility] (a) WBC 9.7 x10^3/UL 4.0- 10.0 RBC 4.04 x10^6/UL 3.93-6.00 HGB 13.4 g/dL 12.0-17.0 HCT 38 % 35-50 MCV 95.0 fL 80.0-95.0 MCH 33.2 pg High 25.6-32.2 MCHC 34.9 g/dL 32.2-36.0 RDW-CV 11.8 % 11.6-14.4 PLT 360 x10^3/UL 163-400 MPV 8.8 fL Low 9.4-12.4 Jeanine# 6.91 x10^3/UL High 1.56-6.13 Lymph# 2.07 x10^3/UL 1.18-3.74 [place]# 0.52 x10^3/UL 0.24-0.82 Eos # 0.1 x10^3/UL 0.0-0.5 Baso # 0.03 x10^3/UL 0.01-0.08 Jeanine% 71.6 % High 34.0-70.0 Lymph % 21.4 % 20.0-52.0 [place]% 5.4 % 5.0-12.0 Eos% 1.1 % 0.7-7.0 Baso% 0.3 % 0.1-1.2 Laboratory test finding 05/16/2018 [facility] ([facility]) TSH 2.67 mIU/L 0.50-6.00 Free T4 1.30 ng/dL 0.75-1.54 Comprehensive Metabolic 05/16/2018 [facility] ([facility]) Sodium 139 mEq/L 134-149 Prof Potassium 3.7 mEq/L 3.6-5.5 Chloride 101 mEq/L 94-112 Carbon Dioxide 29 mEq/L 21-32 Glucose 103 mg/dL 70-105 BUN 23 mg/dL 6-26 Creatinine 1.2 mg/dL 0.6-1.4 BUN/Creat Ratio 19.2 CALC 8.0-36.0 Calcium 9.3 mg/dL 8.6-10.2 Total Protein 7.6 g/dL 6.4-8.3 Albumin 4.7 g/dL 3.8-5.5 Globulin 2.9 g/dL 2.0-4.8 A/G Ratio 1.6 CALC 0.6-2.3 Alk. Phosphatase 78 U/L 30-110 Alt (SGPT) 18 U/L 7-35 Ast (Sgot) 18 U/L 5-34 Total Bilirubin 0.2 mg/dL 0.2-1.3 GFR Non- 51 ml/min/1.73m^ Low >=60 GFR >60 ml/min/1.73m^ >=60 Laboratory test 05/16/2018 [facility] RPR Non Reactive Non Reactive 1 finding [address] [place] [address] (546)- - Laboratory test 05/07/2018 [facility] Troponin I 0.00 ng/mL <0.04 finding CBC Auto Diff 05/07/2018 [facility] White Blood 8.5 10^3/uL N 3.5-10.8 Count Red Blood Count 4.46 10^6/uL N 4.00-5.40 Hemoglobin 14.6 g/dL N 12.0-16.0 Hematocrit 42 % N 35-47 Mean Corpuscular Volume 95 fL N 80-97 Mean Corpuscular Hemoglobin 33 pg High 27-31 Mean Corpuscular HGB Conc 35 g/dL N 31-36 Red Cell Distribution Width 12 % N 10.5-15 Platelet Count 341 10^3/uL N 150-450 Mean Platelet Volume 7.5 um3 N 7.4-10.4 Abs Neutrophils 5.7 10^3/uL N 1.5-7.7 Abs Lymphocytes 2.0 10^3/uL N 1.0-4.8 Abs Monocytes 0.6 10^3/uL N 0-0.8 Abs Eosinophils 0.1 10^3/uL N 0-0.6 Abs Basophils 0.1 10^3/uL N 0-0.2 Abs Nucleated RBC 0 10^3/uL Granulocyte % 67.0 % N 38-83 Lymphocyte % 23.9 % Low 25-47 Monocyte % 7.0 % N 0-7 Eosinophil % 1.3 % N 0-6 Basophil % 0.8 % N 0-2 Nucleated Red Blood Cells % 0.1 Laboratory test finding 05/07/2018 [facility] Lactic Acid 0.9 mmol/L N 0.5-2.0 2 Troponin I 0.01 ng/mL <0.04 Comp Metabolic Panel 05/07/2018 [facility] Sodium 138 mmol/L N 135-145 Potassium 3.5 mmol/L N 3.5-5.0 Chloride 101 mmol/L N 101-111 Co2 Carbon Dioxide 31 mmol/L N 22-32 Anion Gap 6 mmol/L N 2-11 Glucose 116 mg/dL High 70-100 Blood Urea Nitrogen 17 mg/dL N 6-24 Creatinine 0.81 mg/dL N 0.51-0.95 BUN/Creatinine Ratio 21.0 High 8-20 Calcium 9.6 mg/dL N 8.6-10.3 Total Protein 7.2 g/dL N 6.4-8.9 Albumin 4.6 g/dL N 3.2-5.2 Globulin 2.6 g/dL N 2-4 Albumin/Globulin Ratio 1.8 N 1-3 Total Bilirubin 0.50 mg/dL N 0.2-1.0 Alkaline Phosphatase 86 U/L N 34-104 Alt 13 U/L N 7-52 Ast 14 U/L N 13-39 Egfr Non- 75.2 >60 Egfr 90.9 >60 3 Laboratory test 02/09/2018 [facility] Surgical Pathology SEE RESULT BELOW 4, 5 finding Poc Urinalysis 01/09/2018 [facility] Poc Glucose, Urine Negative Negative Poc Bilirubin, Urine Negative Negative Poc Ketone, Urine Negative Negative Poc Specific [place], Urine 1.010 N 1.010-1.030 Poc Blood, Urine Negative Negative Poc pH, Urine 7.0 N 5-9 Poc Protein, Urine Negative Negative Poc Urobilinogen, Urine 0.2 Negative Poc Nitrite, Urine Negative Negative Poc Leukocytes, Urine Negative Negative Poc Color, Urine Yellow Poc Clarity, Urine Clear 6 Laboratory test 10/20/2017 [facility] SEE RESULT 7, 8 finding Pathology BELOW Laboratory test 04/26/2017 [facility] C-Reactive 4.4 mg/L 0.0- 9 finding [address] [facility] Protein, Quant 4.9 [place] [address] (607)- - Antinuclear 04/26/2017 [facility] Antinuclear Positive Abnormal 10 Antibodies, Ifa [address] [facility] Antibodies, [place] [address] (607)- - Homogeneous Pattern TNP Nucleolar Pattern TNP Speckled Pattern 1:640 High Centromere Pattern TNP Spindle Apparatus Pattern 1:1280 High Nuclear Membrane Pattern TNP Midbody Pattern TNP Nuclear Dot Pattern TNP Pcna Pattern TNP Centriole Pattern TNP Note: See Comment: 11 Rheumatoid 04/26/2017 [facility] Ra Latex Turbid. <10.0 0.0-13.9 Arthritis Factor [address] [facility] IU/mL ([facility]) [place] [address] (607)- - Laboratory test 04/26/2017 [facility] Sedimentation Rate 14mm finding (607)- - Lipid Profile 04/26/2017 [facility] ([facility]) Cholesterol 198 mg/dL 120- 200 Triglycerides 226 mg/dL High 30-200 HDL Cholesterol 34 mg/dL 30-85 LDL (Calculated) 119 CALC 0-129 VLDL Cholesterol 45 mg/dL 0-50 HDL Risk Factor 5.8 CALC High 0.0-4.4 Laboratory test 04/26/2017 [facility] ([facility]) Free T4 0.92 ng/dL 0.75- 1.54 finding TSH 2.93 mIU/L 0.50-6.00 Vitamin B-12 430 pg/mL 230-1050 Complete Blood Count 04/26/2017 [facility] ([facility]) WBC 7.1 x10^3/UL 3.6-9.6 RBC 3.99 x10^6/UL 3.90-5.70 HGB 13.3 g/dL 12.1-17.2 HCT 39 % 36-50 MCV 97.0 fL 82.2-97.4 MCH 33.5 pg High 27.6-33.3 MCHC 34.5 g/dL 33.0-35.5 RDW 13.6 % 11.6-13.7 PLT 365 x10^3/UL 150-400 MPV 6.7 fL Low 7.4-10.4 Gran # 4.8 x10^3/UL 1.5-7.2 Lymph# 1.9 x10^3/UL 0.7-4.9 [place]# 0.4 x10^3/UL 0.1-0.9 Gran % 66.7 % 42.2-75.2 Lymph % 27.5 % 20.5-51.1 [place]% 5.8 % 1.7-9.3 Comprehensive Metabolic 04/26/2017 [facility] ([facility]) Sodium 143 mEq/L 134-149 Prof Potassium 4.2 mEq/L 3.6-5.5 Chloride 100 mEq/L 94-112 Carbon Dioxide 27 mEq/L 21-32 Glucose 106 mg/dL High 70-105 BUN 15 mg/dL 6-26 Creatinine 0.8 mg/dL 0.6-1.4 BUN/Creat Ratio 18.8 CALC 8.0-36.0 Calcium 9.3 mg/dL 8.6-10.2 Total Protein 6.8 g/dL 6.4-8.3 Albumin 4.5 g/dL 3.8-5.5 Globulin 2.3 g/dL 2.0-4.8 A/G Ratio 2.0 CALC 0.6-2.3 Alk. Phosphatase 82 U/L 30-110 Alt (SGPT) 14 U/L 7-35 Ast (Sgot) 14 U/L 5-34 Total Bilirubin 0.5 mg/dL 0.2-1.3 GFR Non- >60 ml/min/1.73m^ >=60 GFR >60 ml/min/1.73m^ >=60 Comprehensive Metabolic 08/16/2016 [facility] ([facility]) Sodium 140 mEq/L 134-149 Prof Potassium 5.0 mEq/L 3.6-5.5 Chloride 99 mEq/L 94-112 Carbon Dioxide 26 mEq/L 21-32 Glucose 104 mg/dL 70-105 BUN 13 mg/dL 6-26 Creatinine 0.7 mg/dL 0.6-1.4 BUN/Creat Ratio 18.6 CALC 8.0-36.0 Calcium 9.7 mg/dL 8.6-10.2 Total Protein 6.9 g/dL 6.4-8.3 Albumin 4.4 g/dL 3.8-5.5 Globulin 2.5 g/dL 2.0-4.8 A/G Ratio 1.8 CALC 0.6-2.3 Alk. Phosphatase 95 U/L 30-110 Alt (SGPT) 15 U/L 7-35 Ast (Sgot) 14 U/L 5-34 Total Bilirubin 0.4 mg/dL 0.2-1.3 GFR Non- >60 ml/min/1.73m^ >=60 GFR >60 ml/min/1.73m^ >=60 Lipid Profile 08/16/2016 [facility] ([facility]) Cholesterol 208 mg/dL High 120-200 Triglycerides 154 mg/dL 30-200 HDL Cholesterol 35 mg/dL 30-85 LDL (Calculated) 142 CALC High 0-129 VLDL Cholesterol 31 mg/dL 0-50 HDL Risk Factor 5.9 CALC High 0.0-4.4 Complete Blood Count 08/16/2016 [facility] (a) WBC 8.3 x10^3/UL 3.6-9.6 RBC 4.22 x10^6/UL 3.90-5.70 HGB 13.9 g/dL 12.1-17.2 HCT 41 % 36-50 MCV 98.0 fL High 82.2-97.4 MCH 33.0 pg 27.6-33.3 MCHC 33.8 g/dL 33.0-35.5 RDW 13.8 % High 11.6-13.7 PLT 344 x10^3/UL 150-400 MPV 6.2 fL Low 7.4-10.4 Gran # 6.0 x10^3/UL 1.5-7.2 Lymph# 2.0 x10^3/UL 0.7-4.9 [place]# 0.3 x10^3/UL 0.1-0.9 Gran % 71.0 % 42.2-75.2 Lymph % 24.6 % 20.5-51.1 [place]% 4.4 % 1.7-9.3 1 1 sst 2 [place] Severe Sepsis and Septic Shock Management Bundle Measure requires all lactic acids initially measuring >2.0 mmol/L be repeated. 3 Because ethnic data is not always readily available, this report includes an eGFR for both -Americans and non- Americans. The National Kidney Disease Education Program (NKDEP) does not endorse the use of the MDRD equation for patients that are not between the ages of 18 and 70, are , have extremes of body size, muscle mass, or nutritional status, or are non- or non-. According to the National Kidney Foundation, irrespective of diagnosis, the stage of the disease is based on the level of kidney function: Stage Description GFR(mL/min/1.73 m(2)) 1 Kidney damage with normal or decreased GFR 90 2 Kidney damage with mild decrease in GFR 60-89 3 Moderate decrease in GFR 30-59 4 Severe decrease in GFR 15-29 5 Kidney failure <15 (or dialysis) 4 1369-A:Morphology: changing, and irregular brown papule;DDX: Dysplastic Nevus;Location: left late 5 SEE RESULT BELOW Name: ALLYSON DIMAS : [address]: Deborah Rowland MD Acct: [id number] Unit: [id number] AGE: 47 Location: [facility] Re02/09/18 SEX: F Status: REG REF SPEC: [id number] ROCKY: 02/09/18-[address]: Deborah Rowland MD REQ: [id number] RECD: 02/09/182834 STATUS: ULISES PHILLIPS DR: Minnie Arvizu MD _ ORDERED: LEVEL 4/2 COMMENTS: [id number] FINAL DIAGNOSIS 1. Skin, left lateral axilla, excisional biopsy: -- Compound melanocytic nevus, superficial congenital pattern. -- The lesion is excised in the planes of sectioning examined. 2. Skin, left upper back, excisional biopsy: -- Blue nevus. -- The lesion is excised in the planes of sectioning examined. PRE-OPERATIVE DIAGNOSIS 1) Changing and irregular brown papule, dysplastic nevus; 2) blue papule with homogeneous pigment under dermoscopy and changing, blue nevus GROSS DESCRIPTION 1. The specimen is received in formalin labeled, Left Lateral Axilla, and consists of a 0.7 cm jorgensen-white circular hairbearing skin punch excised to a maximum depth of 0.3 cm with a central 0.4 x 0.2 cm ill-defined mottled jorgensen-brown raised lesion. The specimen is inked, trisected and submitted entirely in one cassette. 2. The specimen is received in formalin labeled, Left Upper Back, and consists of a 0.8 cm mottled jorgensen-white to ku circular skin punch excised to a maximum depth of 0.7 cm which is trisected and submitted entirely in one cassette. Signed by and Reported on: Shaneka Roman MD 02/12/18 1117 END OF REPORT DEPARTMENT OF PATHOLOGY, [address] [place] [address] Juan Fiore M.D. Director [place] # [id number] Freight Adjuster: [id number] 1022-A:Morphology: pink papule with small telangiectasias. ;DDX: Basal Cell Carcinoma;Location: l 8 SEE RESULT BELOW Name: ALLYSON DIMAS : [address]: Deborah Rowland MD Acct: [id number] Unit: [id number] AGE: 47 Location: [facility] Re10/20/17 SEX: F Status: REG REF SPEC: [id number] ROCKY: 10/20/17- SUBM DR: Deborah Rowland MD REQ: [id number] RECD: 10/20/17 STATUS: ULISES PHILLIPS DR: Minnie Arvizu MD _ ORDERED: LEVEL 4 COMMENTS: [id number] FINAL DIAGNOSIS Skin, left lateral alar rim, biopsy: -- Actinic keratosis, excoriated. PRE-OPERATIVE DIAGNOSIS [place] papule with small telangiectasias; basal cell carcinoma GROSS DESCRIPTION The specimen is received in formalin labeled, Left Lateral Alar Rim, and consists of a 0.3 by up to 0.3 cm jorgensen-pink ovoid skin shave which is inked and submitted entirely in one cassette. Signed (signature on file) Shaneka Roman MD 0925 END OF REPORT DEPARTMENT OF PATHOLOGY, [address] [place] [address], [place] [address] Juan Fiore M.D. Director [facility] # [id number] 9 1sst 10 Negative <1:80 Borderline 1:80 Positive >1:80 11 A positive MICKEY result may occur in healthy individuals (low titer) or be associated with a variety of diseases. See interpretation chart which is not all inclusive: Pattern Antigen Detected Suggested Disease Association Homogeneous DNA(ds,ss), SLE - High titers Nucleosomes, Histones Drug-induced SLE Speckled Sm, SHELLFISH DREDGE OPERATOR, SCL-70, SLE,MCTD,PSS (diffuse form), SS-A/SS-B Sjogrens Nucleolar SCL-70, PM-1/SCL High titers Scleroderma, PM/DM Centromere Centromere PSS (limited form) w/Crest syndrome variable Nuclear Dot Sp100,e08-udnivc Primary Biliary Cirrhosis Nuclear GP210, Primary Biliary Cirrhosis Membrane nathalia A,B,C Procedures Date Code Description Status 05/25/2018 [id number] Mammogram Completed 09/14/2016 [id number] Mammogram Completed 08/23/2016 [address] [facility] Completed Encounters Type Date Location Provider Dx Diagnosis Office Visit 05/16/2018 [facility] Office Minnie Arvizu, L94.9 Localized 3:20p M.D. connective tissue disorder, unspecified I10 Essential (primary) hypertension E66.9 Obesity, unspecified D64.9 Anemia, unspecified R41.3 Other amnesia Z12.31 Encntr screen mammogram for malignant neoplasm of breast Z23 Encounter for immunization Office Visit 03/02/2018 8:30a Main Office Yasmeen Mosqueda I10 Essential ( primary) NATALYA Graff hypertension L94.9 Localized connective tissue disorder, unspecified E66.9 Obesity, unspecified F17.210 Nicotine dependence, cigarettes, uncomplicated I78.1 Nevus, non-neoplastic H53.8 Other visual disturbances Z71.6 Tobacco abuse counseling Office Visit 08/28/2017 5:40p Main Office Minnie Arvizu, I78.1 Nevus, non- neoplastic M.D. I10 Essential (primary) hypertension L94.9 Localized connective tissue disorder, unspecified Office Visit 06/26/2017 3:50p Main Office Minnie Arvizu, R06.2 Wheezing M.D. Office Visit 05/30/2017 11:40a [facility] Minnie Arvizu I10 Essential (primary) M.D. hypertension E78.5 Hyperlipidemia, unspecified L94.9 Localized connective tissue disorder, unspecified E66.9 Obesity, unspecified Office Visit 02/23/2017 7:20p Main Office Minnie Arvizu I10 Essential ( primary) M.D. hypertension L94.8 Other specified localized connective tissue disorders E78.5 Hyperlipidemia, unspecified R42 Dizziness and giddiness Office Visit 01/21/2017 10:40a Main Office Carol Marshall I10 Essential ( primary) [employer] hypertension F17.210 Nicotine dependence, cigarettes, uncomplicated Office Visit 08/23/2016 4:10p Main Office Minnie Arvizu, Z00.00 Encntr for general M.D. adult medical exam w/o abnormal findings F17.210 Nicotine dependence, cigarettes, uncomplicated Z71.6 Tobacco abuse counseling Z12.31 Encntr screen mammogram for malignant neoplasm of breast H91.92 Unspecified hearing loss, left ear Plan of Treatment 09/20/2018 - Brad Izaguirre MDF43.22 Adjustment disorder with anxietyNew Medication:Lorazepam 1 mg - one by mouth three times a day as needed severe anxietyWork Note - was seen in office today. Recommend remain out of work. Return date: 10/01/18AllComments:~B_~U_Medication Management~b_~u_ Patient Understands medications she's taking? Yes No Are there Barriers to Adherence? Yes No Has the patient been asked about herbal supplements and therapies, and OTC meds? Yes No
--- NOTE | 2018-10-13 09:45 | UC ---
Respiratory Complaint HPI - HPI Summary HPI Summary: Chief complaint: cough over a week; last night she twisted her back; c/o 8/10 left lumbar pain worse with movement. Denies UTI symptoms or burning radiation down her leg. Patient is a 28 year heavy smoker. Nurses note reviewed: Cough x 1 week, productive, denies any sinus congestion, possible fever last night, Mid to Left lower back pain starting last night; states she was getting out of bed when she felt "tweak in back"; pain worse with movement. Hx of back injury "years ago". - History of Current Complaint Stated Complaint: URI Time Seen by Provider: 10/13/18 09:45 Hx Last Menstrual Period: hyster - Allergies/Home Medications Allergies/Adverse Reactions: Allergies Allergy/AdvReac Type Severity Reaction Status Date / Time TED Inhibitors Allergy Rash Verified 10/13/18 09:46 amoxicillin Allergy Rash Verified 10/13/18 09:46 celecoxib [From Celebrex] Allergy Nausea Verified 10/13/18 09:46 levofloxacin [From Levaquin] Allergy Swelling Verified 10/13/18 09:46 Of Face,Lips,& Throat Sulfa (Sulfonamide Allergy Rash Verified 10/13/18 09:46 Antibiotics) PMH/Surg Hx/FS Hx/Imm Hx - Additional Past Medical History Additional PMH: PMH includes mixed connective tissue disease, RA; HTN, on HTCZ; multiple allergiers to antibiotics, pneumonia, heart cath without significant disease noted according to patient, removal of fibroids with hysterectomy. Family history: RA IN MOTHER. 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 - Surgical History Surgical History: Yes Surgery Procedure, Year, and Place: 1998-tubal ligation. partial hysterectomy. tonsilectomy at 7 years old. appy - Family History Known Family History: Positive: Cardiac Disease, Hypertension, Diabetes, Other - neg: Breast CA - Social History Alcohol Use: None Substance Use Type: None Smoking Status (MU): Heavy Every Day Tobacco Smoker Type: Cigarettes Amount Used/How Often: 1ppd Household Exposure Type: Cigarettes - Immunization History Most Recent Influenza Vaccination: planning to get Most Recent Tetanus Shot: January 2013 Review of Systems All Other Systems Reviewed And Are Negative: Yes Respiratory: Positive: Shortness Of Breath, Cough Cardiovascular: Positive: Negative Gastrointestinal: Positive: Negative Genitourinary: Positive: Negative Musculoskeletal: Positive: Myalgia - left lumbar worse with movement Is Patient Immunocompromised?: No Physical Exam Triage Information Reviewed: Yes Appearance: Pain Distress - mild with movement; pain left lumbar Vital Signs Reviewed: Yes Eye Exam: Normal ENT Exam: Normal Neck: Positive: Supple Respiratory: Positive: No accessory muscle use, Rhonchi, Wheezing, Expiration - extended Cardiovascular: Positive: RRR, No Murmur Abdominal Exam: Normal Abdomen Description: Positive: Nontender, No Organomegaly, Soft Musculoskeletal: Positive: Other: - left lumbar discomfort with twisting. Respiratory Course/Dx - Course Course Of Treatment: cough over a week; last night she twisted her back; c/o 8/ 10 left lumbar pain worse with movement. Denies UTI symptoms or burning radiation down her leg. Patient is a 30 year heavy smoker. PE: expiratory wheezes and rhonchi. No shortness of breath. Also, left lumbar pain with twisting. Dx is bronchitis with bronchospasm and left lumbar strain. Patient will be started on albuterol, spacer, Zpak and symptomatic muscle strain treatment. Medications reviewed. Hypertension status reviewed. - Differential Dx/Diagnosis Differential Diagnosis/HQI/PQRI: Asthma, Bronchitis, Laryngitis, Lower Resp Infection, Pulmonary Embolism Provider Diagnosis: Bronchospasm with bronchitis, acute Discharge - Sign-Out/Discharge Documenting (check all that apply): Patient Departure All imaging exams completed and their final reports reviewed: No Studies - Discharge Plan Condition: Stable Disposition: HOME Prescriptions: Albuterol HFA INHALER* [Ventolin HFA Inhaler*] 1 - 2 puff INH Q4H #1 mdi MDD 8 puffs a day Azithromycin TAB* [Zithromax TAB*] 250 mg PO DAILY #6 tab Inhaler, Assist Devices [Aerochamber Mv] 1 mis XX Q6HR #1 mis Patient Education Materials: Acute Bronchitis (ED), Bronchospasm (ED) Referrals: Minnie Arvizu MD [Primary Care Provider] - Additional Instructions: WE DISCUSSED: PLEASE SEEK CARE AT THE EMERGENCY DEPARTMENT IF SYMPTOMS WORSEN OR IF NEW SYMPTOMS DEVELOP. FOLLOW UP WITH YOUR PRIMARY CARE PHYSICIAN IF CONDITION CONTINUES BEYOND 3 DAYS WITHOUT IMPROVEMENT. We are open from 7 a.m. to 10 p.m. Call us with any questions or concerns. YOUR DIAGNOSIS IS: bronchitis with bronchospasm; lumbar left muscle strain. YOUR PRESCRIPTION RECOMMENDATION IS: albuterol 2 puffs, 4 times a day; with a spacer; Z nael OTHER INSTRUCTIONS: hot tea and honey; no smoking; warm moist heat and ice for your back. Acetaminophen (Tylenol and other brand names) 500mg - 1000mg every 8 hours. Maximum is 3 doses a day. If this dosage is required for more than 5 days, you should re-check with your doctor. - Billing Disposition and Condition Condition: STABLE Disposition: Home
[2018-10-13 09:58] VITALS: BP 109/74
== END 2018-10-13 10:55 | disposition home or self-care (01) ==
LOC: UCEAST 09:38
DX: J20.9 Acute bronchitis, unspecified (principal); S39.012A Strain of muscle, fascia and tendon of lower back, initial encounter; X50.1XXA Overexertion from prolonged static or awkward postures, initial encounter; Y92.9 Unspecified place or not applicable; I10 Essential (primary) hypertension; M06.9 Rheumatoid arthritis, unspecified; Z88.1 Allergy status to other antibiotic agents; Z88.0 Allergy status to penicillin; Z88.2 Allergy status to sulfonamides; Z88.8 Allergy status to other drugs, medicaments and biological substances; F17.210 Nicotine dependence, cigarettes, uncomplicated
CPT/HCPCS: 99212; G0463

== ENCOUNTER 2018-12-06 06:58 | Emergency (ER) | payer OTHER ==
[2018-12-06 08:25] LABS: ABS Basophils 0 10^3/ul (0-0.2); ABS Eosinophils 0.1 10^3/ul (0-0.6); ABS Lymphocytes 1.8 10^3/ul (1.0-4.8); ABS Monocytes 0.4 10^3/ul (0-0.8); ABS Neutrophils 3.4 10^3/ul (1.5-7.7); ABS Nucleated RBC 0 10^3/ul; Eosinophil % 1.4 %; Hematocrit 39 % (35-47); Hemoglobin 13.7 g/dL (12.0-16.0); Mean Corpuscular HGB Conc 35 g/dL (31-36); Mean Corpuscular Hemoglobin 34 pg (27-31); Mean Corpuscular Volume 95 fL (80-97); Mean Platelet Volume 7.3 fL (7.4-10.4); Nucleated Red Blood Cells % 0.1; Platelet Count 297 10^3/uL (150-450); Red Blood Count 4.09 10^6 /uL (3.70-4.87); Red Cell Distribution Width 12 % (10.5-15); White Blood Count 5.7 10^3/uL (3.5-10.8)
[2018-12-06 08:32] LABS: Albumin 4.3 g/dL (3.2-5.2); Albumin/Globulin Ratio 1.9 (1-3); BUN/Creatinine Ratio 25.3 (8-20); Calcium 9.4 mg/dL (8.6-10.3); EGFR African American 93.2 (>60); Globulin 2.3 g/dL (2-4); Potassium 3.6 mmol/L (3.5-5.0); Total Bilirubin 0.4 mg/dL (0.2-1.0); Total Protein 6.6 g/dL (6.4-8.9)
[2018-12-06 08:34] LABS: Troponin I 0.01 ng/mL (<0.04)
[2018-12-06 10:33] VITALS: BP 143/90
--- NOTE | 2018-12-06 11:20 | ED ---
Upper Extremity Pain - HPI Summary HPI Summary: Patient is a 48-year-old female who presents to the ED with left arm pain upon awakening this morning. She states symptoms worsen when palpating on the left anterior chest wall with radiation of worsening pain down the left arm. She states she has a history of hypertension and a failure of 3 stress tests in the past with subsequent cardiac catheterization in [place], however had no blockages. She is currently on lisinopril/hydrochlorothiazide. She isn't every day smoker. She states she has never had this pain before. She was concerned over an CA. No personally or family history of CA. She states she took some meloxicam prior to arrival to the ED with some improvement. She denies any weakness to the arm. She denies any range of motion limitations. Denies any back pain. Denies any CP or SOB. Denies any fevers, sweats, chills. - History of Current Complaint Chief Complaint: EDExtremityUpper Stated Complaint: "L ARM PAIN" PER PT Time Seen by Provider: 12/06/18 07:16 Hx Obtained From: Patient Hx Last Menstrual Period: hyster Onset/Duration: Started Hours Ago Timing: Constant Severity Initially: Mild Severity Currently: Mild Character: Aching Aggravating Factor(s): Nothing Alleviating Factor(s): Nothing Associated Signs & Symptoms: Positive: Negative - Risk Factors Non-Orthopedic Risk Factor: Negative DVT Risk Factors: Negative Septic Arthritis Risk Factor: Negative - Allergies/Home Medications Allergies/Adverse Reactions: Allergies Allergy/AdvReac Type Severity Reaction Status Date / Time TED Inhibitors Allergy Rash Verified 12/06/18 07:33 amoxicillin Allergy Rash Verified 12/06/18 07:33 celecoxib [From Celebrex] Allergy Nausea Verified 12/06/18 07:33 levofloxacin [From Levaquin] Allergy Swelling Verified 12/06/18 07:33 Of Face,Lips,& Throat Sulfa (Sulfonamide Allergy Rash Verified 12/06/18 07:33 Antibiotics) Home Medications: Home Medications Meloxicam 7.5 mg PO BID PRN 12/06/18 [History Confirmed 12/06/18] PMH/Surg Hx/FS Hx/Imm Hx Previously Healthy: Yes Endocrine/Hematology History: Reports: Hx Systemic Lupus Erythematosus - "3 possitives, one speckled possitive test", no formal diagnosis, refuses, Hx Anemia - "On and off throughout life" Denies: Hx Diabetes, Hx Thyroid Disease Cardiovascular History: Reports: Hx Hypertension, Other Cardiovascular Problems/ Disorders - HEART CATH Denies: Hx Congestive Heart Failure Respiratory History: Reports: Other Respiratory Problems/Disorders - HX PNEUMONIA LAST YEAR Denies: Hx Asthma, Hx Chronic Obstructive Pulmonary Disease (COPD) GI History: Denies: Hx Ulcer, Other GI Disorders History: Denies: Hx Renal Disease, Other Problems/Disorders Musculoskeletal History: Reports: Hx Tendonitis - Surgical History Surgery Procedure, Year, and Place: 1998-tubal ligation. partial hysterectomy. tonsilectomy at 7 years old. appy Hx Anesthesia Reactions: No - Immunization History Date of Tetanus Vaccine: up to date Infectious Disease History: No Infectious Disease History: Reports: Hx of Known/Suspected MRSA - abcess 2009 ? ? questionable Denies: Hx Clostridium Difficile, Hx Hepatitis, Hx Human Immunodeficiency Virus (HIV), Hx Shingles, Hx Tuberculosis, Traveled Outside the [place] in Last 30 Days - Family History Known Family History: Positive: Cardiac Disease, Hypertension, Diabetes, Other - neg: Breast CA - Social History Occupation: Employed Full-time Lives: With Family Alcohol Use: None Hx Substance Use: No Substance Use Type: Reports: None Hx Tobacco Use: Yes - not currently Smoking Status (MU): Heavy Every Day Tobacco Smoker Type: Cigarettes Amount Used/How Often: 1ppd Review of Systems Constitutional: Negative Negative: Fever, Chills, Fatigue, Skin Diaphoresis Negative: Palpitations, Chest Pain Negative: Shortness Of Breath, Cough Genitourinary: Negative Positive: no symptoms reported, see HPI Negative: Arthralgia, Myalgia Skin: Negative Neurological: Negative All Other Systems Reviewed And Are Negative: Yes Physical Exam Triage Information Reviewed: Yes Vital Signs On Initial Exam: Initial Vitals Temp Pulse Resp BP Pulse Ox 97.6 F 77 18 131/87 97 12/06/18 07:03 12/06/18 07:03 12/06/18 07:03 12/06/18 07:03 12/06/18 07:03 Vital Signs Reviewed: Yes Appearance: Positive: Well-Appearing, Well-Nourished Skin: Positive: Warm, Skin Color Reflects Adequate Perfusion Head/Face: Positive: Normal Head/Face Inspection Eyes: Positive: EOMI, ADONIS, Conjunctiva Clear Neck: Positive: Supple, No Lymphadenopathy Respiratory/Lung Sounds: Positive: Clear to Auscultation, Breath Sounds Present Cardiovascular: Positive: RRR, Pulses are Symmetrical in both Upper and Lower Extremities Musculoskeletal: Positive: Pain @ - left anterior chest wall radiating to the shoulder and ipsilateral arm - worse with palpation over the brachial plexus Neurological: Positive: Sensory/Motor Intact, Alert, Oriented to Person Place, Time, Speech Normal Psychiatric: Positive: Normal, Affect/Mood Appropriate AVPU Assessment: Alert Diagnostics - Vital Signs Vital Signs Temp Pulse Resp BP Pulse Ox 12/06/18 10:33 97.2 F 75 16 143/90 97 12/06/18 09:02 65 131/77 97 12/06/18 09:01 75 98 12/06/18 08:32 72 126/83 97 12/06/18 08:02 69 140/79 98 12/06/18 08:00 67 99 12/06/18 07:03 97.6 F 77 18 131/87 97 - Laboratory Lab Results: Lab Results 12/06/18 12/06/18 Range/Units 08:01 08:01 WBC 5.7 (3.5-10.8) 10^3/uL RBC 4.09 (3.70-4.87) 10^6 /uL Hgb 13.7 (12.0-16.0) g/dL Hct 39 (35-47) % MCV 95 (80-97) fL MCH 34 H (27-31) pg MCHC 35 (31-36) g/dL RDW 12 (10.5-15) % Plt Count 297 (150-450) 10^3/uL MPV 7.3 L (7.4-10.4) fL Neut % (Auto) 59.6 % Lymph % (Auto) 31.0 % Mckean % (Auto) 7.3 % Eos % (Auto) 1.4 % Baso % (Auto) 0.7 % Absolute Neuts (auto) 3.4 (1.5-7.7) 10^3/ul Absolute Lymphs (auto) 1.8 (1.0-4.8) 10^3/ul Absolute Monos (auto) 0.4 (0-0.8) 10^3/ul Absolute Eos (auto) 0.1 (0-0.6) 10^3/ul Absolute Basos (auto) 0 (0-0.2) 10^3/ul Absolute Nucleated RBC 0 10^3/ul Nucleated RBC % 0.1 Sodium 138 (135-145) mmol/L Potassium 3.6 (3.5-5.0) mmol/L Chloride 103 (101-111) mmol/L Carbon Dioxide 29 (22-32) mmol/L Anion Gap 6 (2-11) mmol/L BUN 20 (6-24) mg/dL Creatinine 0.79 (0.51-0.95) mg/dL Est GFR ( Amer) 93.2 (>60) Est GFR (Non-Af Amer) 77.0 (>60) BUN/Creatinine Ratio 25.3 H (8-20) Glucose 111 H (70-100) mg/dL Calcium 9.4 (8.6-10.3) mg/dL Total Bilirubin 0.40 (0.2-1.0) mg/dL AST 14 (13-39) U/L ALT 14 (7-52) U/L Alkaline Phosphatase 82 (34-104) U/L Troponin I 0.01 (<0.04) ng/mL Total Protein 6.6 (6.4-8.9) g/dL Albumin 4.3 (3.2-5.2) g/dL Globulin 2.3 (2-4) g/dL Albumin/Globulin Ratio 1.9 (1-3) Result Diagrams: 12/06/18 08:01 12/06/18 08:01 Lab Statement: Any lab studies that have been ordered have been reviewed, and results considered in the medical decision making process. Course/Dx - Course Course Of Treatment: On physical examination, there is tenderness to palpation over the left anterior chest wall, more specifically over palpation over the pectoralis minor muscle with no pain to the posterior cervical spine. No limitations with ROM and patient is able to abduct and adduct without difficulty. No numbness or tingling to the shoulder, arm or fingertips. Pulses +2 intact bilaterally to the radial pulse. Good cap refill. Labs obtained including a troponin which is 0.01. Chest x-ray shows the stigmata of COPD, but otherwise normal findings. Other labs WNL. Patient is dx with brachial plexus pain with nerve discomfort. She is encouraged ibuprofen, gentle stretches and heat. - Diagnoses Differential Diagnosis/HQI/PQRI: Positive: Strain, Sprain Provider Diagnoses: Brachial plexitis Discharge - Sign-Out/Discharge Documenting (check all that apply): Patient Departure Patient Received Moderate/Deep Sedation with Procedure: No - Discharge Plan Condition: Stable Disposition: HOME Forms: *Work Release Referrals: Minnie Arvizu MD [Primary Care Provider] - Additional Instructions: You are diagnosed with nerve pain to the arm. Do not go to work today Continue with heat packs to the area Gentle stretches Ibuprofen 600mg three times daily - Billing Disposition and Condition Condition: STABLE Disposition: Home
== END 2018-12-06 10:34 | disposition home or self-care (01) ==
LOC: ED 06:58
DX: G54.0 Brachial plexus disorders (principal); F17.210 Nicotine dependence, cigarettes, uncomplicated
CPT/HCPCS: 36415; 71046; 80053; 84484; 85025; 93005; 99283

== ENCOUNTER 2019-05-13 12:25 | Emergency (ER) | payer OTHER ==
--- OUTSIDE RECORDS SUMMARY | 2019-05-13 12:31 | XMS REPORT | Continuity of Care Document ---
:1970 External Reference #:[id number] Author Name Lulú Beatty NP Address [address] [place] [address] Care Team Providers Name Role Phone Minnie Arvizu M.D. - Family Medicine Care Team Information Assembly Line Driver Unavailable Luis Barry.[facility] - Care Team Information Assembly Line Driver [phone] Physical Therapy Problems Active Problems Provider Date Hyperlipidemia Minnie Arvizu M.D. Onset: 08/23/2016 Essential hypertension Minnie Arvizu M.D. Onset: 02/23/2017 Disorder of connective tissue Minnie Arvizu M.D. Onset: 08/28/2017 Osteoarthritis Minnie Arvizu M.D. Onset: 10/24/2017 Steatosis of liver Minnie Arvizu M.D. Onset: 01/09/2018 Rheumatoid arthritis Carol Tapia M.D. Onset: 01/05/2019 Obesity Minnie Arvizu M.D. Onset: 05/16/2018 Social History Type Date Description Comments Sex Unknown Tobacco Use Start: Unknown Current Cigarette Smoker 1 Pack Daily Smoking Status Reviewed: 01/05/19 Current Cigarette Smoker 1 Pack Daily ETOH Use Social Alcohol Tobacco Use Start: Unknown Heavy tobacco smoker (more than 10 cigarettes/day) Allergies, Adverse Reactions, Alerts Active Allergies Reaction Severity Comments Date Levaquin Severe tongue swelling 08/23/2016 Amoxicillin Mild 08/23/2016 Bactrim Mild rash 08/23/2016 Duloxetine fever 06/07/2017 Medications Active Medications SIG Qnty Indications Ordering Date Provider Physical Therapy evaluate and M79.605 Lulú San 04/25/2019 treat left leg NATALYA Beatty pain, right hip pain Meloxicam take 1-2 60tabs Minnie Arvizu 11/14/2018 7.5mg Tablets tablets by M.D. mouth every day as needed take with food Ondansetron 1 tab by mouth 30tabs Minnie Arvizu, 06/21/2018 4mg Tablets Dispers every 6 hours M.D. as needed Melatonin [facility], 02/23/2017 10mg Capsules M.D. Irbesartan take one tablet 90tabs [facility], 01/26/2017 75mg Tablets by mouth every M.D. day Hydrochlorothiazide 1 by mouth 90tabs [facility], 11/17/2016 25mg Tablets every day M.D. Plaquenil bid Unknown 200mg Tablets Methotrexate Sodium (PF) q10 days Unknown History Medications Physical Therapy evaluate and [id number] Carol Marshall 01/05/2019 - treat left leg [employer] 04/25/2019 pain, right hip pain Off Work Note off work. [id number] Carol Marshall 01/05/2019 - Medical excuse. [employer] 04/25/2019 01/05/19 through 02/04/19 Prednisone 2 by mouth 14tabs L94.9 [facility], 11/14/2018 - 20mg Tablets every day x 4 M.D. 04/25/2019 days then 1 by mouth every day x 4 days, 1/2 tab x 4 days; take with food Cyclobenzaprine HCL take 1/2 - 1 90tabs L94.9 [facility], 11/14/2018 - 10mg tablet by mouth M.D. 04/25/2019 Tablets 3 times a day if needed for muscle spasm Immunizations CPT Code Status Date Vaccine Lot # [id number] Given 05/16/2018 Influenza Vac, Quadrivalent, Slit Virus, Im [id number] Vital Signs Date Vital Result Comment 04/25/2019 3:04pm BP Systolic 136 mmHg BP Diastolic 82 mmHg Heart Rate 92 /min Body Temperature 98.5 F Respiratory Rate 16 /min Height 66 inches 5'6" Weight 223.00 lb BMI (Body Mass Index) 36.0 kg/m2 02/11/2019 2:19pm BP Systolic 112 mmHg BP Diastolic 72 mmHg Heart Rate 76 /min Body Temperature 97.9 F Respiratory Rate 20 /min Height 66 inches 5'6" Weight 226.12 lb shoes on BMI (Body Mass Index) 36.5 kg/m2 Results Test Date Facility Test Result H/L Range Note Laboratory test 12/25/2018 [facility] TSH (Thyroid 1.92 mcIU/mL Normal 0.34- 5.60 1, 2 finding Stim Horm) Comp Metabolic 12/06/2018 [facility] [place] Sodium 138 mmol/L Normal 135-145 Panel Potassium 3.6 mmol/L Normal 3.5-5.0 Chloride 103 mmol/L Normal 101-111 Co2 Carbon Dioxide 29 mmol/L Normal 22-32 Anion Gap 6 mmol/L Normal 2-11 Glucose 111 mg/dL High 70-100 Blood Urea Nitrogen 20 mg/dL Normal 6-24 Creatinine 0.79 mg/dL Normal 0.51-0.95 BUN/Creatinine Ratio 25.3 High 8-20 Calcium 9.4 mg/dL Normal 8.6-10.3 Total Protein 6.6 g/dL Normal 6.4-8.9 Albumin 4.3 g/dL Normal 3.2-5.2 Globulin 2.3 g/dL Normal 2-4 Albumin/Globulin Ratio 1.9 Normal 1-3 Total Bilirubin 0.40 mg/dL Normal 0.2-1.0 Alkaline Phosphatase 82 U/L Normal 34-104 Alt 14 U/L Normal 7-52 Ast 14 U/L Normal 13-39 Egfr Non- 77.0 >60 Egfr 93.2 >60 3 Laboratory test 12/06/2018 [facility] [place] Troponin I 0.01 ng/mL <0.04 4 finding CBC Auto Diff 12/06/2018 [facility] [place] White Blood Count 5.7 10^3/uL Normal 3.5- 10.8 Red Blood Count 4.09 10^6/uL Normal 3.70-4.87 Hemoglobin 13.7 g/dL Normal 12.0-16.0 Hematocrit 39 % Normal 35-47 Mean Corpuscular Volume 95 fL Normal 80-97 Mean Corpuscular Hemoglobin 34 pg High 27-31 Mean Corpuscular HGB Conc 35 g/dL Normal 31-36 Red Cell Distribution Width 12 % Normal 10.5-15 Platelet Count 297 10^3/uL Normal 150-450 Mean Platelet Volume 7.3 fL Low 7.4-10.4 Abs Neutrophils 3.4 10^3/uL Normal 1.5-7.7 Abs Lymphocytes 1.8 10^3/uL Normal 1.0-4.8 Abs Monocytes 0.4 10^3/uL Normal 0-0.8 Abs Eosinophils 0.1 10^3/uL Normal 0-0.6 Abs Basophils 0 10^3/uL Normal 0-0.2 Abs Nucleated RBC 0 10^3/uL Granulocyte % 59.6 % Lymphocyte % 31.0 % Monocyte % 7.3 % Eosinophil % 1.4 % Basophil % 0.7 % Nucleated Red Blood Cells % 0.1 1 [id number] 2 [id number] 3 Because ethnic data is not always [...] 5 Kidney failure <15 (or dialysis) 4 Troponin-I testing on Plasma Separator Tubes (PST) has a known false positive rate of 0.20-0.40%. All positive troponins reflex immediately to secondary confirmatory testing. Using the [employer] DxI 800 Access Immunoassay systems, the 99th percentile upper reference limit was demonstrated to be < 0.03 ng/mL. Procedures Date Code Description Status 05/25/2018 [id number] Mammogram Completed 09/14/2016 [id number] Mammogram Completed Medical Devices Description No Information Available Encounters Type Date Location Provider Dx Diagnosis Office Visit 02/11/2019 [facility] Zaria Cox, L72.3 Sebaceous cyst 2:15p Afnp-C Office Visit 01/05/2019 [facility] Carol Marshall M79.605 Pain in left leg 11:00a [employer] M25.551 Pain in right hip F17.210 Nicotine dependence, cigarettes, uncomplicated Office Visit 12/29/2018 11:30a Main Office Shaneka Morales, R60.0 Localized edema DIGITAL PUBLISHING SPECIALIST L94.9 Localized connective tissue disorder, unspecified M79.605 Pain in left leg M25.562 Pain in left knee Office Visit 11/14/2018 11:20a [facility] Minnie Arvizu, L94.9 Localized M.D. connective tissue disorder, unspecified I10 Essential (primary) hypertension Assessments Date Code Description Provider 04/25/2019 M79.605 Pain in left leg Lulú Beatty NP 04/25/2019 M25.562 Pain in left knee Lulú Beatty, NATALYA 02/11/2019 L72.3 Sebaceous cyst Zhanna Alvarez 01/05/2019 M79.605 Pain in left leg Carol Tapia M.D. 01/05/2019 M25.551 Pain in right hip Carol Tapia M.D. 01/05/2019 F17.210 Nicotine dependence, cigarettes, Carol Tapia M.D. uncomplicated 12/29/2018 R60.0 Localized edema Shaneka Carmen, DIGITAL PUBLISHING SPECIALIST 12/29/2018 L94.9 Localized connective tissue disorder, Shaneka Carmen, DIGITAL PUBLISHING SPECIALIST unspecified 12/29/2018 M79.605 Pain in left leg Shaneka Carmen, [facility] 12/29/2018 M25.562 Pain in left knee Shaneka Carmen, DIGITAL PUBLISHING SPECIALIST 11/14/2018 L94.9 Localized connective tissue disorder, Minnie Arvizu M.D. unspecified 11/14/2018 I10 Essential (primary) hypertension Minnie Arvizu M.D. Plan of Treatment 04/25/2019 - Lulú Beatty NPM79.605 Pain in left legNew Medication: Physical Therapy - evaluate and treat left leg pain, right hip painNew Labs: Comp Metabolic, Ordered: 04/25/19Uric Acid (CMC,CX,Fma), Ordered: 04/25/19C Reactive Protein, Ordered: 04/25/19Lyme Western Blot Serum, Ordered: Comments:Please restart physical therapy and try a check in with sports medicine. There is not much to do beyond injections and surgery.M25.562 Pain in left kneeAllComments:1. Patient has been queried about patient's goals/ preferences and functional/lifestyle goals at relevant visits. If relevant, describe: Has been discussed, noted above2. Treatment goals as explainedto the patient: see above3. Are there barriers to meeting treatment goals? Yes If Yes, please describe: Barriers include possible insurance limits, disease process, and difficulty with lifestyle changes4. Self-Management goals as described to the patient: Yes, see above As always, we strongly encourage a healthy diet and making physical activity a part of your every day life. If you have questions about how or where to start, please contact the office. Functional Status Description No Information Available Mental Status Description No Information Available Referrals Refer to Reason for Referral Status Appt Date Lulú Delgado MD Consult and treat. Pt will call to schedule her Created own appt. [address] [place] [address] [phone] [facility] [employer] Technician left leg pain and right hip pain. jw Scheduled 01/17/2019 [address] [place] [address] [phone] Luis Barry.[facility] PHYSICAL THERAPY evaluate and treat Scheduled left leg and left knee pain [address] [place] [address] [place] [address] [phone]
[2019-05-13 12:41] VITALS: BP 139/87
[2019-05-13] MEDS ORDERED: Albuterol 2.5 MG/3 ML NEB.SOL* (0.083%) INH ONE (12:58)
--- NOTE | 2019-05-13 12:58 | UC ---
Throat Pain/Nasal Al HPI - HPI Summary HPI Summary: Patient is a 48yo female presenting with cold symptoms and cough x2 days and chest congestion and SOB since this morning. Denies nasal congestion and ear pain. Notes sore throat and chest muscle pain from forceful coughing. Notes clear sputum. Denies headache. Notes "feeling warm" but is unsure of fever. Denies chills. Denies n/v/d. Denies seasonal allergies and asthma. Notes using albuterol inhaler last night and this morning with some relief. Notes taking flexeril last night for muscle pains which provided relief as well. Patient does add she has been exposed to strep throat. - History of Current Complaint Chief Complaint: UCGeneralIllness Stated Complaint: COUGH CHEST CONGESTION Hx Obtained From: Patient Hx Last Menstrual Period: hyster Onset/Duration: Gradual Onset, Lasting Days Severity: Moderate Pain Intensity: 6 Pain Scale Used: 0-10 Numeric - Allergies/Home Medications Allergies/Adverse Reactions: Allergies Allergy/AdvReac Type Severity Reaction Status Date / Time TED Inhibitors Allergy Rash Verified 12/25/18 09:42 amoxicillin Allergy Rash Verified 12/25/18 09:42 celecoxib [From Celebrex] Allergy Nausea Verified 12/25/18 09:42 levofloxacin [From Levaquin] Allergy Swelling Verified 12/25/18 09:42 Of Face,Lips,& Throat Sulfa (Sulfonamide Allergy Rash Verified 12/25/18 09:42 Antibiotics) PMH/Surg Hx/FS Hx/Imm Hx - Additional Past Medical History Additional PMH: Rheumatoid Arthritis - Surgical History Surgical History: Yes Surgery Procedure, Year, and Place: 1998-tubal ligation. partial hysterectomy. tonsilectomy at 7 years old. appy - Family History Known Family History: Positive: Cardiac Disease, Hypertension, Diabetes, Other - neg: Breast CA - Social History Alcohol Use: None Substance Use Type: None Smoking Status (MU): Heavy Every Day Tobacco Smoker Type: Cigarettes Amount Used/How Often: 1ppd Household Exposure Type: Cigarettes - Immunization History Most Recent Influenza Vaccination: planning to get Most Recent Tetanus Shot: January 2013 Review of Systems All Other Systems Reviewed And Are Negative: Yes Constitutional: Positive: Fever. Negative: Chills, Fatigue Skin: Positive: Negative Eyes: Positive: Negative ENT: Positive: Sore Throat. Negative: Ear Ache, Nasal Discharge, Sinus Congestion, Sinus Pain/Tenderness Respiratory: Positive: Shortness Of Breath, Cough - productive Cardiovascular: Positive: Negative. Negative: Palpitations, Chest Pain Gastrointestinal: Positive: Negative. Negative: Abdominal Pain, Vomiting, Diarrhea, Nausea Musculoskeletal: Positive: Negative, Myalgia - patient notes sore muscles from coughing. Neurological: Negative: Headache Psychological: Positive: Negative Physical Exam Triage Information Reviewed: Yes Appearance: Well-Appearing, No Pain Distress, Well-Nourished Vital Signs: Initial Vital Signs Temp 99.9 F 05/13/19 12:35 Pulse 105 05/13/19 12:35 Resp 20 05/13/19 12:35 BP 139/87 05/13/19 12:35 Pulse Ox 98 05/13/19 12:35 Lab Results 05/13/19 Range/Units 12:51 Group A Strep Rapid Negative (Negative) Vital Signs Reviewed: Yes Eyes: Positive: Conjunctiva Clear ENT: Positive: Hearing grossly normal, Pharyngeal erythema, TMs normal, Hoarse voice, Uvula midline. Negative: Nasal congestion, Nasal drainage, TM bulging, TM dull, TM red, Tonsillar swelling, Tonsillar exudate, Sinus tenderness Neck exam: Normal Neck: Positive: Supple, Nontender, No Lymphadenopathy Respiratory: Positive: No respiratory distress, No accessory muscle use, Wheezing - diffuse. Negative: Crackles, Rhonchi, Stridor Cardiovascular Exam: Normal Cardiovascular: Positive: RRR. Negative: Tachycardia Neurological: Positive: Alert Psychological: Positive: Age Appropriate Behavior Skin Exam: Normal Throat Pain/Nasal Course/Dx - Course Course Of Treatment: Strep test negative. Patient given breathing treatment here. She noted significant relief afterward. Educated patient about acute bronchitis. I am treating her with mucinex, tessalon perles, and albuterol inhaler for symptomatic relief. VS normal and patient in no respiratory distress. Instructed her to follow up with PCP if symptoms persist or go to the ED if symptoms worsen. Patient voiced understanding and agreed to the treatment plan. - Differential Dx/Diagnosis Provider Diagnosis: Acute bronchitis Discharge ED - Sign-Out/Discharge Documenting (check all that apply): Patient Departure All imaging exams completed and their final reports reviewed: No Studies - Discharge Plan Condition: Stable Disposition: HOME Prescriptions: Albuterol HFA INHALER* [Ventolin HFA Inhaler*] 1 - 2 puff INH Q4H PRN #1 mdi PRN Reason: Shortness Of Breath Benzonatate CAP* [Tessalon 100 MG CAP*] 100 mg PO TID PRN #21 cap PRN Reason: Cough guaiFENesin ER TAB [Mucinex*] 600 mg PO BID PRN #20 tab.er PRN Reason: Congestion Patient Education Materials: Acute Bronchitis (ED) Referrals: Minine Arvizu MD [Primary Care Provider] - If Needed Additional Instructions: As discussed, continue to use your albuterol inhaler for your shortness of breath. You may take mucinex as prescribed for the treatment of your congestion. You may take tessalon perles as prescribed for your coughing. Get plenty of rest and fluids. Follow up with your primary care doctor if your symptoms worsen or do not resolve within 10 days. Go to the emergency room if you experience fever higher than 102, nausea, vomiting, or worsening shortness of breath. - Billing Disposition and Condition Condition: STABLE Disposition: Home
== END 2019-05-13 13:45 | disposition home or self-care (01) ==
LOC: UCEAST 12:25
DX: J20.9 Acute bronchitis, unspecified (principal); M06.9 Rheumatoid arthritis, unspecified; F17.210 Nicotine dependence, cigarettes, uncomplicated; Z88.8 Allergy status to other drugs, medicaments and biological substances; Z88.0 Allergy status to penicillin; Z88.1 Allergy status to other antibiotic agents; Z88.2 Allergy status to sulfonamides
CPT/HCPCS: 87651; 99212; G0463

== ENCOUNTER 2019-09-21 14:00 | Emergency (ER) | payer OTHER ==
--- OUTSIDE RECORDS SUMMARY | 2019-09-21 14:06 | XMS REPORT | Summary of Care ---
:1970 Author Organization [facility] Address [address] [facility] [place] [address] Care Team Providers Name Role Phone Minnie Arvizu MD Primary Care Provider Ceasar Benites MD Unavailable Reason for Visit Reason Comments Follow Up Encounter Details Date Type Department Care Team Description 08/23/2019 Office Visit [facility] Vera Herrera MD Palindromic rheumatism (Primary Dx); 1 [facility] [address] [facility] Family history of rheumatoid arthritis; [place] [id number] [place] [id number] High risk medication use [phone] Allergies Active Allergy Reactions Severity Noted Date Comments Amoxicillin Unknown Reaction 11/12/2009 Amoxicillin Hives 06/20/2016 Sulfamethoxazole Hives 06/20/2016 W/Trimethoprim Beta Adrenergic Blockers Respiratory Reaction 11/13/2009 Shortness of breath Duloxetine Other 08/24/2017 Patient states this made her sick Levaquin Swelling High 11/12/2009 Tongue swelling Kdc:Yellow Swelling 06/20/2016 Dye+Tartrazine+Levofloxaci n documented as of this encounter (statuses as of 08/23/2019) Medications Medication Sig Dispensed Refills Start End Status Date Date Iron 325 (65 FE) MG Take 1-3 Tabs 0 Active Oral Tab by mouth DAILY. 3 tabs for 1 week, then 2 tabs for 1 week then 1 tab daily nicotine transdermal Place 21 mg 0 Active patch-daily (NICODERM) onto skin 21 MG/24HR Transdermal DAILY. PATCH 24 HR acetaminophen Take 650 mg by 0 Active (TYLENOL) 325 MG Oral mouth EVERY Tab FOUR HOURS NEEDED for Pain. cyclobenzaprine Take 5 mg by 0 Active (FLEXERIL) 5 MG Oral mouth DAILY Tab NEEDED. irbesartan (AVAPRO) 75 Take 75 mg by 0 Active MG Oral Tab mouth DAILY. hydroxychloroquine Take 1 Tab by 180 Tab 3 08/31/19 Active (PLAQUENIL) 200 MG mouth TWICE 19 Oral Tab DAILY. Require annual eye check Meloxicam 5 MG Oral Take by mouth 0 Active Cap TWICE DAILY. ondansetron (ZOFRAN) 4 Take 4 mg by 0 Active MG Oral Tab mouth EVERY EIGHT HOURS NEEDED for Nausea/Vomiting . Insulin Syringe-Needle 1 Syringe by 100 Each 0 02/27/20 Active U-100 (ADVOCATE Does not apply 19 INSULIN SYRINGE) 31G X route EVERY 7 12/20" 1 ML Does not DAYS. apply Misc foliC acid 1 MG Oral TAKE ONE TABLET 90 Tab 2 04/29/20 Active Tab BY MOUTH EVERY 19 DAY EXCEPT THE DAY THAT YOU TAKE METHOTREXATE hydrochlorothiazide Take 25 mg by 0 Active (HCTZ, ORETIC) 25 MG mouth DAILY. Oral Tab Methotrexate 2.5 MG Take 8 Tabs by 120 Tab 0 08/23/19 Active Oral Tab mouth EVERY 7 20 DAYS. Restart 15 mg (6tab) 1xwk and if OK after 2 wks increase to 20 mg (8tab) 1xwk. In evening to avoid caffeine methotrexate sodium, Inject 0.6 mL 12 vial 0 02/27/20 Discontinued PF, (MTX) 50 MG/2ML beneath the 19 020 (Provider Injection Solution skin EVERY 7 Discontinued) DAYS. 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 Family history of rheumatoid arthritis 12/01/2017 Pain in joint, multiple sites 12/01/2017 MICKEY positive 12/01/2017 Closed fracture of shaft of right fibula with routine healing 09/14/2016 Right ankle pain 06/20/2016 Closed fracture of right fibula 06/20/2016 documented as of this encounter (statuses as of 08/23/2019) Social History Tobacco Use Types Packs/Day Years Used Date Former Smoker Cigarettes 0.5 Started: 03/17/2017 Smokeless Tobacco: Never Used Comments: quit smoking 11/11/09 Alcohol Use Drinks/Week oz/Week Comments Yes once a year Sex Assigned at Date Recorded Not on file Job Start Date Occupation Industry Not on file Not on file Not on file Travel History Travel Start Travel End No recent travel history available. documented as of this encounter Last Filed Vital Signs Vital Sign Reading Time Taken Comments Blood Pressure 130/80 08/23/2019 8:02 AM EST Pulse - - Temperature - - Respiratory Rate - - Oxygen Saturation - - Inhaled Oxygen Concentration - - Weight 103.9 kg (229 lb) 08/23/2019 8:02 AM EST Height 168.3 cm (5' 6.25") 08/23/2019 8:02 AM EST Body Mass Index 36.68 08/23/2019 8:02 AM EST documented in this encounter Patient Instructions Patient InstructionsClVera rascon MD - 08/23/2019 8:00 AM ESTStay on 15 mg ( 6 tab) weekly until seen againElectronically signed by Vera Herrera MD at 8:34 AM EST documented in this encounter Progress Notes Vera Herrera MD - 08/23/2019 8:00 AM EST PATIENT: Allyson Napier : 1970 DATE OF SERVICE: 08/23/2019 REFERRING PRACTITIONER: Minnie Arvizu PRIMARY CARE PROVIDER: Minnie Arvizu HISTORY OF PRESENT ILLNESS: Subjective Allyson Napier is a 49-y.o. 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 She did have an upper respiratory tract infection which has resolved during which time she was off methotrexate. While she was on methotrexate at a dose of 50 mg she had a good outcome. Blood test erratic and not following instructions. Currently on Plaquenil 200 mg twice daily, methotrexate 15 mg once a week, folic acid daily but not the day that she takes methotrexate MRI ankle "IMPRESSION Impression: MRI of the left ankle before and after the IV administration of 10mmol of Gadavist contrast: 1. Negative for findings to suggest inflammatory arthritis/rheumatoid arthritis. 2. Moderate tendinosis of the Achilles tendon without discrete tear. There is fusiform thickening at the site marked by the technologist as the lump. 3. Mild thickening of the plantar fascia andmild edema in the plantar heel fat-pad without other findings of plantar fasciitis or tear. 4. Sinustarsi demonstrates edema and a 2 x 0.7 x 0.4 cm multilocular ganglion cyst adjacent to the interosseous talocalcaneal ligament. 5. Moderate size os trigonum ossicle, small amount of fluid in the posterior recesses of the ankle joint and posterior subtalar joint, and fluid in the tendon sheath of the flexor hallucis longus at the level of the tarsal tunnel. 6. Soft tissue swelling. 7. Appearance compatible with previous grade 2- 3 sprain of the anterior talofibular ligament." Results show MICKEY 1:320, ESR 23. Urine monitor blood. X-ray hands degenerative joint disease second DIP joint only. Normal negative [employer], CCP, Ro, [place], double- stranded DNA, C3, C4, creatinine, LFT, hepatitis B and C, smooth muscle antibody , chest x-ray, Lyme, ANCA. Current Outpatient Medications Medication Sig acetaminophen (TYLENOL) 325 MG Oral Tab Take 650 mg by mouth EVERY FOUR HOURS NEEDED for Pain. cyclobenzaprine (FLEXERIL) 5 MG Oral Tab Take 5 mg by mouth DAILY NEEDED. foliC acid 1 MG Oral Tab TAKE ONE TABLET BY MOUTH EVERY DAY EXCEPT THE DAY THAT YOU TAKE METHOTREXATE hydrochlorothiazide (HCTZ, ORETIC) 25 MG Oral Tab Take 25 mg by mouth DAILY. hydroxychloroquine (PLAQUENIL) 200 MG Oral Tab Take 1 Tab by mouth TWICE DAILY. Require annual eye check Insulin Syringe-Needle U-100 (ADVOCATE INSULIN SYRINGE) 31G X 12/20" 1 ML Does not apply Misc 1 Syringe by Does not apply route EVERY 7 DAYS. irbesartan (AVAPRO) 75 MG Oral Tab Take 75 mg by mouth DAILY. Iron 325 (65 FE) MG Oral Tab Take 1-3 Tabs by mouth DAILY. 3 tabs for 1 week, then 2 tabs for1 week then 1 tab daily Meloxicam 5 MG Oral Cap Take by mouth TWICE DAILY. Methotrexate 2.5 MG Oral Tab Take 8 Tabs by mouth EVERY 7 DAYS. Restart 15 mg (6tab) 1xwk andif OK after 2 wks increase to 20 mg (8tab) 1xwk. In evening to avoid caffeine nicotine transdermal patch-daily (NICODERM) 21 MG/24HR Transdermal PATCH [address] 21 mg onto skin DAILY. ondansetron (ZOFRAN) 4 MG Oral Tab Take 4 mg by mouth EVERY EIGHT HOURS NEEDED for Nausea/Vomiting. No current facility-administered medications for this visit. Allergies Allergen Reactions Levaquin Swelling Tongue swelling Amoxicillin Unknown Reaction Amoxicillin Hives Bactrim [Sulfamethoxazole W/Trimethoprim] Hives Beta Blockers [Beta Adrenergic Blockers] Respiratory Reaction Shortness of breath Duloxetine Other Patient states this made her sick Levaquin [Kdc:Yellow Dye+Tartrazine+Levofloxacin] Swelling Patient Active Problem List Diagnosis Right ankle pain Closed fracture of right fibula Closed fracture of shaft of right fibula with routine healing Family history of rheumatoid arthritis Pain in joint, multiple sites MICKEY positive Palindromic rheumatism Objective PHYSICAL EXAMINATION: VITALS: BP 130/80 | Ht 5' 6.25" (1.683 m) | Wt 229 lb (103.9 kg) | BMI 36.68 kg/m Body massindex is 36.68 kg/m. 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 Family history of rheumatoid arthritis V17.7 Z82.61 3. High risk medication use V58.69 Z79.899 COMPREHENSIVE METABOLIC PANEL CBC WITH DIFFERENTIAL I have stressed the importance of following instructions regarding blood tests for safety. She needs blood test today and then every 3 months assuming the dose of methotrexate stays the same. If she increases the dose in the future she will need blood tests monthly for 3 months then every 3 months.Given the prolonged break in the methotrexate due to a head cold we will continue her on current dose of 15 mg weekly. Reminded to get annual eye check for Plaquenil. At least 50 % of the 25 minute visit were spent in discussing diagnosis, treatment options, prognosis, reviewing and arranging investigations, reviewing any outside records, setting up monitoring requirements, ordering medications and prior approvals as necessary. All questions were addressed and answered. Follow up: 3 months Patient Instructions Stay on 15 mg (6 tab) weekly until seen again Author: Vera Herrera MD 08/23/2019 16:56 documented in this encounter Plan of Treatment Date Type Specialty Care Team Description 11/22/2019 Office Visit Rheumatology Vera Herrera MD [address] [place] [address] [phone] Name Type Priority Associated Diagnoses Order Schedule COMPREHENSIVE METABOLIC Lab Routine High risk medication Every 4 Weeks for 4 PANEL use Occurrences starting 08/23/2019 until 08/23/2020 CBC WITH DIFFERENTIAL Lab Routine High risk medication Every 4 Weeks for 4 use Occurrences starting 08/23/2019 until 08/23/2020 Health Maintenance Due Date Last Done Comments DTaP/Tdap/Td Vaccines (1 - 1979 Tdap) DEPRESSION SCREENING 1980 HIV SCREENING 1983 LIPID DISORDER SCREENING 1986 PAP SMEAR 1989 MAMMOGRAM (SCREENING) 2008 Colonoscopy 2018 ZOSTER IMMUNIZATION SERIES (1 2018 of 2) INFLUENZA VACCINE (#1) 2019 DIABETES SCREENING 04/30/2020 04/30/2019, 08/02/2018, 08/24/2017 HEPATITIS A IMMUNIZATION Aged Out No longer eligible based SERIES on patient's age to complete this topic HPV IMMUNIZATION SERIES Aged Out No longer eligible based on patient's age to complete this topic MENINGOCOCCAL VACCINE IMM Aged Out No longer eligible based on patient's age to complete this topic PNEUMOCOCCAL 0-64 YRS Aged Out No longer eligible based on patient's age to complete this topic documented as of this encounter Results Not on filedocumented in this encounter Visit Diagnoses Diagnosis Palindromic rheumatism Palindromic rheumatism, site unspecified Family history of rheumatoid arthritis Family history of arthritis High risk medication use Encounter for long-term (current) use of other medications documented in this encounter Insurance Payer Benefit Plan / Subscriber ID Effective Dates Phone Address Type Group [employer]CIAL [employer] [place] xxxxxxxxxx 2016-Present A[employer]na Guarantor Name Account Type Relation to Date of Phone Billing Patient Address Allyson Napier Personal/Family 1970 [facility] [address] (Home) [place], [place] [phone] (Work) documented as of this encounter
[2019-09-21 14:14] VITALS: BP 124/74
--- NOTE | 2019-09-21 15:03 | UC ---
FLU HPI - HPI Summary HPI Summary: has felt sick for 2 weeks, seems to have gotten worse 2 days ago. coughing, feels fatigued and "sick", chills tied mucinex and using albuterol inhaler which seems to b helping cough - History of Current Complaint Chief Complaint: UCRespiratory Stated Complaint: COUGH HEADACHE WEAK LIPS FEEL NUMB Time Seen by Provider: 09/21/19 14:33 Hx Obtained From: Patient Hx Last Menstrual Period: hyster Onset/Duration: Gradual Onset Severity Currently: None Pain Intensity: 0 Associated Signs & Symptoms: Positive: Cough, Nasal Congestion - Allergy/Home Medications Allergies/Adverse Reactions: Allergies Allergy/AdvReac Type Severity Reaction Status Date / Time TED Inhibitors Allergy Rash Verified 09/21/19 14:15 amoxicillin Allergy Rash Verified 09/21/19 14:15 celecoxib [From Celebrex] Allergy Nausea Verified 09/21/19 14:15 levofloxacin [From Levaquin] Allergy Swelling Verified 09/21/19 14:15 Of Face,Lips,& Throat Sulfa (Sulfonamide Allergy Rash Verified 09/21/19 14:15 Antibiotics) Home Medications: Home Medications Budesonide/Formote 160/4.5(NF) [Symbicort 160/4.5 (NF)] 1 dose INH BID 09/21/19 [History Confirmed 09/21/19] Folic Acid TAB* [Folvite TAB*] 1 tab PO DAILY 09/21/19 [History Confirmed ] Methotrexate TAB* 6 mg PO WEEKLY 09/21/19 [History Confirmed 09/21/19] PMH/Surg Hx/FS Hx/Imm Hx Previously Healthy: Yes Cardiovascular History: Hypertension Respiratory History: Asthma - Surgical History Surgical History: Yes Surgery Procedure, Year, and Place: 1998-tubal ligation. partial hysterectomy. tonsilectomy at 7 years old. appy. HEART CATH-NO STENTS - Family History Known Family History: Positive: Cardiac Disease, Hypertension, Diabetes, Other - neg: Breast CA - Social History Occupation: Unemployed Lives: With Family Alcohol Use: None Substance Use Type: None Smoking Status (MU): Heavy Every Day Tobacco Smoker Type: Cigarettes Amount Used/How Often: 1ppd Household Exposure Type: Cigarettes Cessation Counseling: Patient Advised to Stop - Immunization History Most Recent Influenza Vaccination: 2019 Most Recent Tetanus Shot: January 2013 Review of Systems All Other Systems Reviewed And Are Negative: Yes Constitutional: Positive: Fatigue Skin: Positive: Negative Respiratory: Positive: Cough. Negative: Shortness Of Breath Cardiovascular: Positive: Negative. Negative: Chest Pain Gastrointestinal: Positive: Negative. Negative: Abdominal Pain, Vomiting Musculoskeletal: Positive: Other: - hx RA Neurological/Mental Status: Positive: Negative - no headache at this time Psychological: Positive: Anxious Physical Exam Triage Information Reviewed: Yes Appearance: No Pain Distress, Obese Vital Signs: Initial Vital Signs Temp 98.2 F 09/21/19 14:10 Pulse 82 09/21/19 14:10 Resp 18 09/21/19 14:10 BP 124/74 09/21/19 14:10 Pulse Ox 100 09/21/19 14:10 Vital Signs Reviewed: Yes Eye Exam: Normal ENT: Positive: Pharynx normal, Nasal congestion, TMs normal. Negative: Nasal drainage Neck exam: Normal Neck: Positive: Supple, Nontender, No Lymphadenopathy Respiratory Exam: Normal Respiratory: Positive: Lungs clear, Other: - no cough during exam Cardiovascular Exam: Normal Cardiovascular: Positive: RRR, No Murmur Neurological Exam: Normal Neurological: Positive: Alert Psychological Exam: Normal Skin Exam: Normal Skin: Negative: Rashes Flu Course/Dx - Differential Dx/Diagnosis Differential Diagnosis/HQI/PQRI: Influenza, Upper Respiratory Infection Provider Diagnosis: Upper respiratory infection Discharge ED - Sign-Out/Discharge Documenting (check all that apply): Patient Departure All imaging exams completed and their final reports reviewed: No Studies - Discharge Plan Condition: Good Disposition: HOME Patient Education Materials: Upper Respiratory Infection (ED) Referrals: Minnie Arvizu MD [Primary Care Provider] - 2 Days (for recheck ) Additional Instructions: drink plenty of fluids and rest use you inhalers and mucinex as directed if at any time your symptoms worsen, please report to the ER - Billing Disposition and Condition Condition: GOOD Disposition: Home
[2019-09-21 15:45] LABS: Influenza A Molecular Negative (Negative); Influenza B Molecular Negative (Negative)
== END 2019-09-21 16:13 | disposition home or self-care (01) ==
LOC: UCEAST 14:00
DX: J06.9 Acute upper respiratory infection, unspecified (principal); I10 Essential (primary) hypertension; J45.909 Unspecified asthma, uncomplicated; F17.210 Nicotine dependence, cigarettes, uncomplicated; Z88.0 Allergy status to penicillin; Z88.6 Allergy status to analgesic agent; Z88.1 Allergy status to other antibiotic agents; Z88.2 Allergy status to sulfonamides; Z88.8 Allergy status to other drugs, medicaments and biological substances; Z79.899 Other long term (current) drug therapy
CPT/HCPCS: 99212; G0463